=== PATIENT | female | born 1995 | race Caucasian/White ===

== ENCOUNTER 2024-01-15 12:47 | Outpatient (AMB) | payer OTHER, SELFPAY ==
--- NOTE | 2024-01-15 12:51 | A.OFFPC_ITS ---
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 Annual Phsyical Allergies chlorhexidine Allergy (Severe, Verified 01/15/24 12:53) Anaphylaxis Medication List - Last Reconciled 01/15/24 by Onesimo Saenz MD alprazolam (Xanax) 0.25 mg PO BEDTIME PRN vilazodone (Viibryd) 10 mg PO DAILY Tobacco use date assessed: 01/15/24 Dental Screening Dental Screen Date: 01/15/24 Did you have a dental visit in the last 12 months?: Yes Did you have a dental problem in the last 6 months where you did not have access to dental care?: No Was dental information given to patient?: Patient has dentist HPI 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 Funez as her psychiatrist who is retiring Patient is currently taking vilazodone 10 mg, I am increasing it to 20 mg Meanwhile I have created a referral for patient to be evaluated at [facility] She is also pushing possibility of ADHD I have ordered labs, that needs to be done fasting She has a family history of hypothyroidism Patient says that she feels she is allergic to mold Recently she has moved and there is mold in the vicinity Which is triggering headaches allergy legs syndrome and at time asthma feeling Patient have never been tested for mold allergy, referral to immunology allergy placed further evaluation Patient is slightly overweight as well She has OBGYN located in [facility] Last visit less than a year ago as per patient Breast exam through OBGYN Follow-up appointment after the lab reports [facility] Social History Housing: House Patient Tobacco Use Status: Current everyday Tobacco user Cigarettes Per Day: 2 e-Cigarette/Vaping Use: Never Used Current occupational status: employed Cognitive needs: No Hearing needs: No Vision needs: No Questionnaire PHQ-9 Over the last 2 weeks, how often have you been bothered by any of the following problems? 1. Little interest or pleasure in doing things: several days 2. Feeling down, depressed, or hopeless: nearly every day 3. Trouble falling or staying asleep, or sleeping too much: more than half the days 4. Feeling tired or having little energy: nearly every day 5. Poor appetite or overeating: not at all 6. Feeling bad about yourself - or that you are a failure or have let yourself or your family down: more than half the days 7. Trouble concentrating on things, such as reading the newspaper or watching television: nearly every day 8. Moving or speaking so slowly that other people could have noticed. Or the opposite - being so fidgety or restless that you have been moving around a lot more than usual: several days 9. Thoughts that you would be better off or of hurting yourself in some way: several days Total score: 16 Depression Screening Interpretation: Positive Depression Screening Follow-up: Existing condition, In treatment and Change in Medication Depression Screening Done: Yes 46539 - PHQ-9 Billing: Yes Source: Developed by Drs. Randall Wright, Theresa Ponce, Rikki Alvarez and colleagues, with an educational quang from [employer]. Thrive Questionnaire Date Thrive assessed: 01/15/24 I am a: Patient What is your living situation today?: I have a place to live, but I am worried about losing it in the future Within the past 12 months, did the food you bought not last and you didn't have the money to get more?: Often true Within the past 12 months, did you worry whether your food would run out before you got money to buy more?: Often true Do you have trouble paying for medicines?: No Do you have trouble getting transportation to medical appointments?: No Do you have trouble paying your heating and electricity bill?: No Do you have trouble taking care of your child, family member or friend?: No Do you have trouble with day-to-day activities such as bathing, preparing meals, shopping, managing finances, etc.?: No Are you currently unemployed and looking for a job?: I choose not to answer this question Are you interested in more education?: No Please select the resources that you would like help with: Housing/Senior Care Currently or been in a relationship where the following occur: No concerns reported THRIVE Score: 3 AUDIT C Alcohol Use Questionnaire (AUDIT-C) 1. How often do you have a drink containing alcohol?: 2-3 times a week 2. How many drinks containing alcohol do you have on a typical day when you are drinking?: 1 or 2 3. How often do you have six or more drinks on one occasion?: Less than monthly Total Score: 4 Score Reviewed/Action Taken: Yes PATRICIA-7 AMB Questionnaire PATRICIA-7 Date PATRICIA - 7 assessed: 01/15/24 Feeling nervous, anxious, or on edge: 3 = Nearly every day Not being able to stop or control worryin = Nearly every day Worrying too much about different things: 3 = Nearly every day Trouble relaxin = Nearly every day Being so restless that it is hard to sit still: 3 = Nearly every day Becoming easily annoyed or irritable: 3 = Nearly every day Feeling afraid as if something awful might happen: 2 = More than half the days Total PATRICIA-7 score (0-4 normal; 5-9 mild; 10-14 moderate; 15-21 severe): 20 Source: Developed by Drs. Randall Wright, Theresa Ponce, Rikki Alvarez and colleagues, with an educational quang from [employer]. PATRICIA-7 Assessment Billing PATRICIA-7 Assessment Tool: PATRICIA-7 Assessment 87142 Review of Systems Const Denies chills, Denies fever(s) and Denies headache(s) Eyes Denies blurry vision ENT Denies headache(s), Denies nasal discharge, Denies nasal obstruction, Denies odynophagia and Denies sinus pain Card Denies chest pain at rest and Denies chest pain with activity Resp Denies cough and Denies hemoptysis GI Denies diarrhea, Denies odynophagia, Denies vomiting and Denies hematemesis Reports as per HPI Musc Denies abnormal gait Skin/Breast Reports as per HPI Neuro Denies Neuro-related abnormal movements, Denies Abnormal speech present, Denies abnormal gait, Denies headache(s) and Denies Sensory deficit (Neuro) Psych Denies mood swings and Denies paranoia Endo Reports as per HPI Rene/Lymph Reports as per HPI Aller/Immun Reports as per HPI Physical exam (Primary Care) Vital Signs: Last Vital Signs Pulse 62 01/15/24 12:52 BP 122/80 07/31/24 12:52 Pulse Ox 98 01/15/24 12:52 Oxygen Delivery Method Room Air 01/15/24 12:52 BMI result Body Mass Index 27.7 Tobacco/Smoking Status: Tobacco use Status Tobacco use date assessed 01/15/24 01/15/24 12:57 Patient Tobacco Use Status Current everyday Tobacco 01/15/24 12:57 e-Cigarette/Vaping Use Never Used 01/15/24 13:11 PHQ-9: PHQ-9 Score PHQ-9: Total score 16 01/15/24 13:26 Depression Screening Interpretation: Positive Depression Screening Follow-up: Existing condition, In treatment and Change in Medication Thrive Assessment: Date of Thrive Assessment Date Thrive assessed 01/15/24 01/15/24 13:09 Currently or been in a relationship where the following occur: No concerns reported Const General: cooperative, comfortable and no acute distress Orientation/consciousness: patient oriented x3 HENMT Head: Yes normocephalic and Yes atraumatic Eyes General: appearance normal, both eyes and all related structures Pupils: Equal, round and reactive pupils present EOM: EOMs intact bilaterally Neck Neck: Yes supple and No lymphadenopathy Thyroid: Thyroid normal Lymphatic: no lymphadenopathy noted Resp Effort & Inspection: normal respiratory effort and able to speak in complete sentences Auscultation: clear to auscultation bilaterally Cardio Heart sounds: S1 normal heart sound present and S2 normal heart sound present GI Palpation (GI): Soft to palpation and nontender Auscultation: normal bowel sounds General: Yes no CVA tenderness Back/Spine/Pelvis Back: no CVA tenderness Skin General skin exam: elasticity normal and turgor normal Neuro General: patient oriented x3 and gait normal Cranial nerves: Yes Equal, round and reactive pupils present Speech: No Abnormal speech present Sensory Exam: No Sensory deficit (Neuro) Coordination: tandem gait normal and Romberg test negative Extrem General: Yes normal exam except as noted and No edema Assessment and Plan Assessment & Plan (1) Encounter for general adult medical examination with abnormal findings: Code(s): Z00.01 - Encounter for general adult medical examination with abnormal findings (2) Family history of hypothyroidism: Code(s): Z83.49 - Family history of other endocrine, nutritional and metabolic diseases (3) Disturbed concentration: Code(s): R41.840 - Attention and concentration deficit (4) Panic anxiety syndrome: Code(s): F41.0 - Panic disorder [episodic paroxysmal anxiety] (5) Major depression, recurrent: Code(s): F33.9 - Major depressive disorder, recurrent, unspecified Qualifiers: Active/Remission status: in partial remission Qualified Code(s): F33.41 - Major depressive disorder, recurrent, in partial remission (6) 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 Funez as her psychiatrist who is retiring Patient is currently taking vilazodone 10 mg, I am increasing it to 20 mg Meanwhile I have created a referral for [facility] She is also pushing possibility of ADHD I have ordered labs, that needs to be done fasting She has a family history of hypothyroidism Patient says that she feels she is allergic to mold Recently she has moved and there is mold in the vicinity Which is triggering headaches allergy legs syndrome and at time asthma feeling Patient have never been tested for mold allergy, referral to immunology allergy placed further evaluation Patient is slightly overweight as well She has OBGYN located in [facility] Last visit less than a year ago as per patient Breast exam through OBGYN Follow-up appointment after the lab reports Orders: Orders Comprehensive [place]. Panel Fast Today F33.9 - Major depressive disorder, recurrent, unspecified, F41.0 - Panic disorder [episodic paroxysmal anxiety], R41.840 - Attention and concentration deficit, Z00.01 - Encounter for general adult medical examination with abnormal findings, Z83.49 - Family history of other endocrine, nutritional and metabolic diseases, Z91.048 - Other nonmedicinal substance allergy status Vitamin B12 Today F33.9 - Major depressive disorder, recurrent, unspecified, F41.0 - Panic disorder [episodic paroxysmal anxiety], R41.840 - Attention and concentration deficit, Z00.01 - Encounter for general adult medical examination with abnormal findings, Z83.49 - Family history of other endocrine, nutritional and metabolic diseases, Z91.048 - Other nonmedicinal substance allergy status TSH reflex Free T4 Today F33.9 - Major depressive disorder, recurrent, unspecified, F41.0 - Panic disorder [episodic paroxysmal anxiety], R41.840 - Attention and concentration deficit, Z00.01 - Encounter for general adult medical examination with abnormal findings, Z83.49 - Family history of other endocrine, nutritional and metabolic diseases, Z91.048 - Other nonmedicinal substance allergy status Complete Blood Count Auto Diff Today F33.9 - Major depressive disorder, recurrent, unspecified, F41.0 - Panic disorder [episodic paroxysmal anxiety], R41.840 - Attention and concentration deficit, Z00.01 - Encounter for general adult medical examination with abnormal findings, Z83.49 - Family history of other endocrine, nutritional and metabolic diseases, Z91.048 - Other nonmedicinal substance allergy status Lipid Panel Today F33.9 - Major depressive disorder, recurrent, unspecified, F41.0 - Panic disorder [episodic paroxysmal anxiety], R41.840 - Attention and concentration deficit, Z00.01 - Encounter for general adult medical examination with abnormal findings, Z83.49 - Family history of other endocrine, nutritional and metabolic diseases, Z91.048 - Other nonmedicinal substance allergy status Vitamin D 25-OH (D2 and D3) Today F33.9 - Major depressive disorder, recurrent, unspecified, F41.0 - Panic disorder [episodic paroxysmal anxiety], R41.840 - Attention and concentration deficit, Z00.01 - Encounter for general adult medical examination with abnormal findings, Z83.49 - Family history of other endocrine, nutritional and metabolic diseases, Z91.048 - Other nonmedicinal substance allergy status Magnesium Today F33.9 - Major depressive disorder, recurrent, unspecified, F41.0 - Panic disorder [episodic paroxysmal anxiety], R41.840 - Attention and concentration deficit, Z00.01 - Encounter for general adult medical examination with abnormal findings, Z83.49 - Family history of other endocrine, nutritional and metabolic diseases, Z91.048 - Other nonmedicinal substance allergy status Referrals Allergy & Immunology Referral Z91.048 - Other nonmedicinal substance allergy status Psychiatry Referral F33.9 - Major depressive disorder, recurrent, unspecified, F41.0 - Panic disorder [episodic paroxysmal anxiety], R41.840 - Attention and concentration deficit Medications: New vilazodone (Viibryd) must administer with a meal/food 20 mg PO DAILY 90 tabs 0RF Coding Level of Care Code New Pt Level 4 (92842) New Pt Prev Care 18-39yr(74423 Diagnoses Encounter for general adult medical examination with abnormal findings Z00.01 Family history of hypothyroidism Z83.49 Disturbed concentration R41.840 Panic anxiety syndrome F41.0 Recurrent major depressive disorder, in partial remission F33.41 Active/Remission status: in partial remission Allergy to mold Z91.048 Additional Codes PATRICIA-7 Assessment Billing - PATRICIA-7 Assessment Tool: PATRICIA-7 Assessment 00772 ([id number])
[2024-01-15 12:52] VITALS: BP 122/80; PULSE 62; O2SAT 98; BMI 27.7
== END 2024-01-15 13:22 | disposition home or self-care (01) ==
PROVIDERS: Visit Provider Internal Medicine
DX: Z00.01 Encounter for general adult medical examination with abnormal findings (principal); F33.41 Major depressive disorder, recurrent, in partial remission; Z83.49 Family history of other endocrine, nutritional and metabolic diseases; R41.840 Attention and concentration deficit; F41.0 Panic disorder [episodic paroxysmal anxiety]; Z91.048 Other nonmedicinal substance allergy status
CPT/HCPCS: 96127; 99204; 99385

== ENCOUNTER 2024-02-05 12:01 | Outpatient (REF) | payer OTHER, SELFPAY ==
[2024-02-05 13:17] LABS: MANUAL DIFF FLAG NO
[2024-02-05 13:29] LABS: Basophils Percent Auto 0.5 % (0-2); Eosinophils Absolute Auto 0.2 X10*3/uL (0.0-0.4); Eosinophils Percent Auto 2.6 % (0-4); Hematocrit 38.8 % (37.0-47.0); Imm Gran Abs Auto 0.02 X10*3/uL (0.00-0.03); Imm Gran Pct Auto 0.3 % (0.0-0.4); Lymphocytes Absolute Auto 1.7 X10*3/uL (1.2-4.9); Lymphocytes Percent Auto 28.9 % (20-40); Mean Corpuscular HGB Conc 33.5 g/dl (31.0-35.0); Mean Corpuscular Hemoglobin 31.8 pg (27.0-33.0); Mean Corpuscular Volume 94.9 fL (80.0-98.0); Mean Platelet Volume 9.7 fL (9.4-12.3); Monocytes Absolute Auto 0.5 X10*3/uL (0.1-1.2); Monocytes Percent Auto 8.4 % (2-11); Neutrophils Absolute Auto 3.5 x10*3/uL (2.0-8.3); Neutrophils Percent Auto 59.3 % (45-73); Platelet Count 206 X10*3/uL (160-400); Red Blood Count 4.09 X10*6/uL (4.20-5.50); Red Cell Distribution Width 11.8 % (11.0-16.0); White Blood Count 5.9 X10*3/uL (4.8-10.8)
[2024-02-05 14:05] LABS: Alanine Aminotransferase 13 U/L (0-31); Albumin Level 4.2 g/dL (3.5-5.0); Alkaline Phosphatase 68 U/L (39-117); Anion Gap 10 (12-20); Aspartate Amino Transferase 15 U/L (5-31); Bilirubin Total 0.3 mg/dL (0.0-1.0); Blood Urea Nitrogen 11 mg/dL (9-16); Calcium 9.5 mg/dL (8.4-10.2); Carbon Dioxide 28 mmol/L (22-29); Chloride 105 mmol/L (96-108); Cholesterol 201 mg/dL (<200); Estimated Glomerular Filt Rate > 60; Glucose Fasting 85 mg/dL (60-99); HDL Cholesterol 53 mg/dL (>40); LDL Cholesterol Calculated 131 mg/dL (<100); Sodium 139 mmol/L (135-145); Total Protein 7.4 g/dL (6.5-8.0); Triglycerides 86 mg/dL (<150)
[2024-02-05 14:21] LABS: TSH reflex Free T4 1.49 uIU/mL (0.32-4.0)
[2024-02-05 18:58] LABS: Vitamin B12 370 pg/mL (200-900)
[2024-02-11 14:13] LABS: Vitamin D 25-OH, D2 <4 ng/mL; Vitamin D 25-OH, D3 18 ng/mL; Vitamin D 25-OH, Total 18 ng/mL (30-100)
== END 2024-02-05 12:02 | disposition home or self-care (01) ==
LOC: HO.HMGCLDS 12:01
PROVIDERS: PCP Internal Medicine; Visit Provider Internal Medicine
DX: Z00.01 Encounter for general adult medical examination with abnormal findings (principal); R41.840 Attention and concentration deficit; F41.0 Panic disorder [episodic paroxysmal anxiety]; F33.9 Major depressive disorder, recurrent, unspecified; Z91.048 Other nonmedicinal substance allergy status; Z83.49 Family history of other endocrine, nutritional and metabolic diseases
CPT/HCPCS: 36415; 80053; 80061; 82306; 82607; 83735; 84443; 85025

== ENCOUNTER 2024-02-06 12:00 | Outpatient (AMB) | payer OTHER, SELFPAY ==
--- NOTE | 2024-02-06 14:30 | A.OFFPSYCH_ITS ---
Intake Intake Visit Reasons: consult Hose Inspector Required: Yes Allergies chlorhexidine Allergy (Severe, Verified 01/15/24 12:53) Anaphylaxis Medication List - Last Reconciled 02/06/24 by Kristi Garcia APRN alprazolam (Xanax) 0.25 mg PO BEDTIME PRN vilazodone (Viibryd) 20 mg PO DAILY HPI- Psychiatric Chief Complaint: consult HPI Narrative: 28 yr old woman referred by PCP for evaluation of depression, anxiety and possible ADHD. Pt reports long hx of depression and anxiety even as a child. She started therapy age 16. She has had many bouts of seasonal depression; after several med trials she finally feels viibryd 20 mg daily has helped her depression. She continues to have difficulty functioning and trouble specifically performing in her job consistently; she has been fired numerous times or left jobs before being fired. 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 She describes panic attacks that include SOB, rapid heart beat and feelings of dread; these have decrease with the viibryd. she also describes another type of panic or anxiety attack: when she feels she can not do something she will worry about it for hours, ruminate and slowly get more upset; she has negative thoughts about herself, recalls all the times she has failed, and feels the lights are too bright and sounds are too loud. she feels embarrassment and shame and start talking too fast, pacing, feels like she'll have a temper tantrum, cries, makes noises, scratches self, and pulls at her hair; she has used DBT strategies with some success to mange these. she often can not get out of her car if at a job site, and fleeing is the only actions that dissipates these episodes; she feels very discouraged and hard on herself because it interferes with her life goals,. 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 she feels distracted all the time primarily with her inner world. 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 Past Psychiatric History: outpt since age 16. no IPLOC; past trial of wellbutrin, lexapro, lamictal and zoloft all ineffective and possibly caused worsening. she ahas been to ED 1 x for panic attacks. Subjective Subjective Subjective Medication Compliance: Yes Side effects from medications: No Review of Systems Medical Review of Systems: unchanged Mental Status Exam Mental Status Exam Patient Appearance: Well Grooomed and Appropriate Patient Orientation: Person, Place, Time and Situation Level of Consciousness: Awake, Appropriate and Alert Patient Behavior: Appropriate, Restless and Distractible Mood Description: Withdrawn, Constricted, Flat and Sad Affect Description: Withdrawn Patient Cognition Impaired: No Ability to Follow Directions: Good Speech Pattern: Difficulty Finding Words Memory Description: Episodic Impaired Hallucinations: None Delusions: Not Present Thought Process: Distracted and Rumination Thought Content: positive for Intact and positive for Goal Oriented Judgement: Fair Assessment and Plan Assessment & Plan (1) Major depression, recurrent: Status: Acute Qualifiers: Active/Remission status: in partial remission Qualified Code(s): F33.41 - Major depressive disorder, recurrent, in partial remission Code(s): F33.9 - Major depressive disorder, recurrent, unspecified (2) Panic anxiety syndrome: Status: Acute Code(s): F41.0 - Panic disorder [episodic paroxysmal anxiety] (3) Disturbed concentration: Status: Acute Code(s): R41.840 - Attention and concentration deficit Plan rule out ADHD rule out OCD continue viibryd 20 mg daily continue xanax 0.25mg prn trial of adderall XR 20mg qam retunr in 2-3 weeks Medications: New dextroamphetamine-amphetamine 20 mg ER (Adderall XR) Partial Fill upon patient request. 20 mg PO QAM 30 caps 0RF Counseling and coordination of Care Pt. Self Management counseling: Maintenance-social rhythm, Mod caffeine/ETOH intake, Nutrition education and improvement, Sleep hygiene and General coping skills Medication management counseling: Effectiveness, Side effects, Dosing range, Duration, Drug interaction and Adherence Diagnosis and Prognosis Counseling: Accuracy of diagnosis, Prognosis over time, Impact of diagnosis on life functions, Impact of family relationship, Problematic behaviors secondary to diagnosis and Adequacy of current interventions Details: I spent 70 minutes reviewing the record, seeing the patient and documenting in the medical record. Counseling provided to the patient/caregiver as outlined below. Addressed patien t/caregiver concerns regarding current medication regime including effective adherence. Addressed patient/caregiver concerns regarding diagnosis and prognosis including accuracy of diagnosis, prognosis over time, impact of diagnosis. Addressed patient/caregiver concerns regarding impact of recent stressors. 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 she grew up in [place]. lived with both parents and has 2 younger brothers. she did ok in school; no IEP; gravitated to artistic classes; stated playing in bands age [age]. grad HS and Associates from [employer]. Substance History: tobacco 1-2 cigarettes per day, etoh 2-3 times a week and 1-2 drinks per day, THC in 20s not now Trauma History: none Coding Level of Care Code Psych Diag Eval w/Med (42774) Diagnoses Recurrent major depressive disorder, in partial remission F33.41 Active/Remission status: in partial remission Panic anxiety syndrome F41.0 Disturbed concentration R41.840
== END 2024-02-06 13:24 | disposition home or self-care (01) ==
LOC: HO.HOP 12:00
PROVIDERS: PCP Internal Medicine; Visit Provider Clinical Nurse Specialist Psychiatric/Mental Health
DX: F33.41 Major depressive disorder, recurrent, in partial remission (principal); F41.0 Panic disorder [episodic paroxysmal anxiety]; R41.840 Attention and concentration deficit
CPT/HCPCS: 90792

== ENCOUNTER → 2024-02-06 12:00 | Outpatient (BNVA) | payer OTHER, SELFPAY | PROVIDERS: PCP Internal Medicine; Visit Provider Clinical Nurse Specialist Psychiatric/Mental Health | DX: F33.41 Major depressive disorder, recurrent, in partial remission (principal); F41.9 Anxiety disorder, unspecified; F41.0 Panic disorder [episodic paroxysmal anxiety]; R41.840 Attention and concentration deficit | CPT/HCPCS: 90792 ==

== ENCOUNTER 2024-02-25 13:29 | Outpatient (AMB) | payer OTHER, SELFPAY ==
[2024-02-25 13:34] VITALS: BP 124/76; PULSE 92; O2SAT 99; BMI 27.4
--- NOTE | 2024-02-25 13:34 | A.OFFPC_ITS ---
Vital Signs 02/25/24 13:34 Height 5 ft 7 in Weight 175 lb 2 oz BMI 27.4 BP 124/76 Blood Pressure Location Rt brachial Position Sitting Pulse 92 Pulse Source Pulse Oximeter Pulse Oximetry (%) 99 Oxygen Delivery Method Room Air Intake Visit Reasons: Medication increase - Med review Allergies chlorhexidine Allergy (Severe, Verified 02/25/24 13:34) Anaphylaxis Medication List - Last Reconciled 02/25/24 by Onesimo Saenz MD alprazolam (Xanax) 0.25 mg PO BEDTIME PRN dextroamphetamine-amphetamine 10 mg ER (Adderall XR) 10 mg PO QAM vilazodone (Viibryd) 20 mg PO DAILY Tobacco use date assessed: 02/25/24 Dental Screening Dental Screen Date: 02/25/24 Did you have a dental visit in the last 12 months?: Yes Did you have a dental problem in the last 6 months where you did not have access to dental care?: No Was dental information given to patient?: Patient has dentist HPI Medication increase - Med review HPI Details Patient is 28-year-old female came in today to go over lab reports Patient was concerned that she is allergic to mold However she has moved out since Lab report does not show elevated eosinophils Kidney functions are intact liver functions are intact TSH is within normal limit Vitamin-D level is low for that I have sent supplement that she is to start 1 daily Patient is currently seeing psychiatric nurse for medication management And in a process of having medication adjusted for anxiety and ADHD Once the medications adjusted she will be transitioned over to or Patient is aware that with Adderall and Xanax she will need to come in every other month for follow-up due to controlled nature of medication She agrees. [facility] Social History Housing: House Patient Tobacco Use Status: Current everyday Tobacco user Cigarettes Per Day: 2 e-Cigarette/Vaping Use: Never Used service: No Current occupational status: employed Cognitive needs: No Hearing needs: No Vision needs: No Questionnaire PHQ-9 Over the last 2 weeks, how often have you been bothered by any of the following problems? 1. Little interest or pleasure in doing things: several days 2. Feeling down, depressed, or hopeless: nearly every day 3. Trouble falling or staying asleep, or sleeping too much: more than half the days 4. Feeling tired or having little energy: nearly every day 5. Poor appetite or overeating: not at all 6. Feeling bad about yourself - or that you are a failure or have let yourself or your family down: more than half the days 7. Trouble concentrating on things, such as reading the newspaper or watching television: nearly every day 8. Moving or speaking so slowly that other people could have noticed. Or the opposite - being so fidgety or restless that you have been moving around a lot more than usual: several days 9. Thoughts that you would be better off or of hurting yourself in some way: several days Total score: 16 Depression Screening Interpretation: Positive Depression Screening Follow-up: Existing condition and In treatment Depression Screening Done: Yes 97722 - PHQ-9 Billing: Yes Source: Developed by Drs. Randall Wright, Theresa Ponce, Rikki Alvarez and colleagues, with an educational quang from [employer]. Thrive Questionnaire Date Thrive assessed: 02/25/24 I am a: Patient What is your living situation today?: I have a place to live, but I am worried about losing it in the future Within the past 12 months, did the food you bought not last and you didn't have the money to get more?: Often true Within the past 12 months, did you worry whether your food would run out before you got money to buy more?: Often true Do you have trouble paying for medicines?: No Do you have trouble getting transportation to medical appointments?: No Do you have trouble paying your heating and electricity bill?: No Do you have trouble taking care of your child, family member or friend?: No Do you have trouble with day-to-day activities such as bathing, preparing meals, shopping, managing finances, etc.?: No Are you currently unemployed and looking for a job?: I choose not to answer this question Are you interested in more education?: No Please select the resources that you would like help with: None Currently or been in a relationship where the following occur: No concerns reported THRIVE Score: 3 AUDIT C Alcohol Use Questionnaire (AUDIT-C) 1. How often do you have a drink containing alcohol?: 2-3 times a week 2. How many drinks containing alcohol do you have on a typical day when you are drinking?: 1 or 2 3. How often do you have six or more drinks on one occasion?: Less than monthly Total Score: 4 Score Reviewed/Action Taken: Yes PATRICIA-7 AMB Questionnaire PATRICIA-7 Date PATRICIA - 7 assessed: 02/25/24 Feeling nervous, anxious, or on edge: 3 = Nearly every day Not being able to stop or control worryin = Nearly every day Worrying too much about different things: 3 = Nearly every day Trouble relaxin = Nearly every day Being so restless that it is hard to sit still: 3 = Nearly every day Becoming easily annoyed or irritable: 3 = Nearly every day Feeling afraid as if something awful might happen: 2 = More than half the days Total PATRICIA-7 score (0-4 normal; 5-9 mild; 10-14 moderate; 15-21 severe): 20 Source: Developed by Drs. Randall Wright, Theresa Ponce, Rikki Alvarez and colleagues, with an educational quang from [employer]. PATRICIA-7 Assessment Billing PATRICIA-7 Assessment Tool: PATRICIA-7 Assessment 65520 Review of Systems Const Denies chills and Denies fever(s) ENT Denies epistaxis and Denies nasal discharge Card Denies chest pain Resp Denies chest congestion, Denies cough and Denies hemoptysis GI Denies diarrhea and Denies nausea Skin/Breast Denies rash Neuro Reports no additional complaints Psych Reports no additional complaints Endo Reports no additional complaints Physical exam (Primary Care) Vital Signs: Last Vital Signs Pulse 92 02/25/24 13:34 BP 124/76 02/25/24 13:34 Pulse Ox 99 02/25/24 13:34 Oxygen Delivery Method Room Air 02/25/24 13:34 BMI result Body Mass Index 27.4 Tobacco/Smoking Status: Tobacco use Status Tobacco use date assessed 02/25/24 02/25/24 13:36 Patient Tobacco Use Status Current everyday Tobacco 02/25/24 13:36 e-Cigarette/Vaping Use Never Used 02/25/24 13:36 PHQ-9: PHQ-9 Score PHQ-9: Total score 16 02/25/24 13:40 Depression Screening Interpretation: Positive Depression Screening Follow-up: Existing condition and In treatment Thrive Assessment: Date of Thrive Assessment Date Thrive assessed 02/25/24 02/25/24 13:40 Currently or been in a relationship where the following occur: No concerns reported Const General: cooperative, comfortable and no acute distress Orientation/consciousness: patient oriented x3 HENMT Head: Yes normocephalic Eyes General: appearance normal, both eyes and all related structures Neck Neck: Yes supple Resp Effort & Inspection: normal respiratory effort, no cough and no stridor Cardio Rhythm: regular rhythm Heart sounds: S1 normal heart sound present and S2 normal heart sound present Skin General skin exam: turgor normal Neuro General: patient oriented x3, tone normal and moves all extremities Extrem Right lower extremity: no edema Left lower extremity: no edema Assessment and Plan Assessment & Plan (1) Major depression, recurrent: Code(s): F33.9 - Major depressive disorder, recurrent, unspecified Qualifiers: Active/Remission status: in partial remission Qualified Code(s): F33.41 - Major depressive disorder, recurrent, in partial remission (2) Panic anxiety syndrome: Code(s): F41.0 - Panic disorder [episodic paroxysmal anxiety] (3) Disturbed concentration: Code(s): R41.840 - Attention and concentration deficit (4) Vitamin D deficiency: Code(s): E55.9 - Vitamin D deficiency, unspecified Plan Patient is 28-year-old female came in today to go over lab reports Patient was concerned that she is allergic to mold However she has moved out since Lab report does not show elevated eosinophils Kidney functions are intact liver functions are intact TSH is within normal limit Vitamin-D level is low for that I have sent supplement that she is to start 1 daily Patient is currently seeing psychiatric nurse for medication management And in a process of having medication adjusted for anxiety and ADHD Once the medications adjusted she will be transitioned over to or Patient is aware that with Adderall and Xanax she will need to come in every other month for follow-up due to controlled nature of medication She agrees. Medications: New cholecalciferol (vitamin D3) 25 mcg PO DAILY 90 days 90 caps 1RF dicyclomine 10 mg PO TID 60 caps 1RF Abdominal cramping Coding Level of Care Code Est Pt Level 3 (77555) Complex EM visit Add On G2211 Diagnoses Recurrent major depressive disorder, in partial remission F33.41 Active/Remission status: in partial remission Panic anxiety syndrome F41.0 Disturbed concentration R41.840 Vitamin D deficiency E55.9 Additional Codes PATRICIA-7 Assessment Billing - PATRICIA-7 Assessment Tool: PATRICIA-7 Assessment 28042 ([id number])
== END 2024-02-25 13:56 | disposition home or self-care (01) ==
PROVIDERS: Visit Provider Internal Medicine
DX: F33.41 Major depressive disorder, recurrent, in partial remission (principal); F41.0 Panic disorder [episodic paroxysmal anxiety]; R41.840 Attention and concentration deficit; E55.9 Vitamin D deficiency, unspecified
CPT/HCPCS: 96127; 99213; G2211

== ENCOUNTER 2024-03-03 16:36 | Outpatient (AMB) | payer OTHER, SELFPAY ==
--- NOTE | 2024-03-03 16:39 | MHC.OFFVISPS ---
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 Allergies chlorhexidine Allergy (Severe, Verified 02/25/24 13:34) Anaphylaxis Medication List - Last Reconciled 03/03/24 by Kristi Garcia APRN alprazolam (Xanax) 0.25 mg PO BEDTIME PRN cholecalciferol (vitamin D3) 25 mcg PO DAILY 90 days dextroamphetamine-amphetamine 10 mg ER (Adderall XR) 10 mg PO QAM dicyclomine 10 mg PO TID vilazodone (Viibryd) 20 mg PO DAILY HPI- Psychiatric Chief Complaint: follow up HPI Narrative: pt reports adderall xr 20 mg caused some side effects including blurry vision; she reduced it to 10mg and blurry vision remitted; she is not sure if it has helped; she reports no depression but continues to have anxiety; GAD7 = 15. discussed long hx since childhood of anxiety, sensitivity to noise and light, external stimulation; emotional reactivity to seemingly innocuous things like cartoons. Past Psychiatric History: outpt since age 16. no IPLOC; past trial of wellbutrin, lexapro, lamictal and zoloft all ineffective and possibly caused worsening. she ahas been to ED 1 x for panic attacks. Subjective Subjective Subjective Medication Compliance: Yes Side effects from medications: Yes (blurry vision) Review of Systems Medical Review of Systems: unchanged Mental Status Exam Mental Status Exam Patient Appearance: Appropriate Patient Orientation: Person, Place, Time and Situation Level of Consciousness: Awake and Appropriate Patient Behavior: Appropriate and Cooperative Mood Description: Calm and Flat Affect Description: Calm Patient Cognition Impaired: No Ability to Follow Directions: Good Speech Pattern: Clear and Appropriate Memory Description: Intact Hallucinations: None Delusions: Not Present Thought Process: Intact and Goal Oriented Thought Content: positive for Intact and positive for Goal Oriented Judgement: Fair Assessment and Plan Assessment & Plan (1) Disturbed concentration: Status: Acute Code(s): R41.840 - Attention and concentration deficit (2) Generalized anxiety disorder with panic attacks: Status: Acute Code(s): F41.1 - Generalized anxiety disorder; F41.0 - Panic disorder [episodic paroxysmal anxiety] Plan rule out ADHD rule out sensory processing difficulty plan: increase vilazedone to 30mg daily reduce adderall to 5mg take 1/2 to 1 tab BID to TID recommend eye exam to check intraocular pressure given blurr vision with adderall 20 mg and vilazedone 20mg daily-may indicate pre-exisiting condition Medications: New dextroamphetamine-amphetamine 5 mg (Adderall) take 1/2 to 1 tablet BID administer doses at least 4-6 hours apart; Partial Fill upon patient request. 5 mg PO BID 60 tabs 0RF vilazodone must administer with a meal/food 10 mg PO DAILY 30 tabs 1RF Refilled vilazodone (Viibryd) must administer with a meal/food 20 mg PO DAILY 90 tabs 0RF Discontinued dextroamphetamine-amphetamine 10 mg ER (Adderall XR) Partial Fill upon patient request. Discontinued Reason: Doctor's Order 10 mg PO QAM 14 caps 0RF Counseling and coordination of Care Pt. Self Management counseling: Maintenance-social rhythm, Mod caffeine/ETOH intake, Sleep hygiene, Behavior activation and Problem solving Medication management counseling: Effectiveness, Side effects, Dosing range, Duration, Drug interaction and Adherence Diagnosis and Prognosis Counseling: Accuracy of diagnosis, Prognosis over time, Impact of diagnosis on life functions and Adequacy of current interventions Details: I spent 45 minutes reviewing the record, seeing the patient and documenting in the medical record. Counseling provided to the patient/caregiver as outlined below. Addressed patient/caregiver concerns regarding current medication regime including effective adherence. Addressed patient/caregiver concerns regarding diagnosis and prognosis including accuracy of diagnosis, prognosis over time, impact of diagnosis. Addressed patient/caregiver concerns regarding impact of recent stressors. 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 she grew up in [place]. lived with both parents and has 2 younger brothers. she did ok in school; no IEP; gravitated to artistic classes; stated playing in bands age [age]. grad HS and Associates from [employer]. Substance History: tobacco 1-2 cigarettes per day, etoh 2-3 times a week and 1-2 drinks per day, THC in 20s not now Trauma History: none Coding Level of Care Code Est Pt Level 5 (45948) Diagnoses Disturbed concentration R41.840 Generalized anxiety disorder with panic attacks F41.1; F41.0
== END 2024-03-03 17:11 | disposition home or self-care (01) ==
LOC: HO.HOP 16:36
PROVIDERS: PCP Internal Medicine; Visit Provider Clinical Nurse Specialist Psychiatric/Mental Health
DX: F33.41 Major depressive disorder, recurrent, in partial remission (principal); F41.1 Generalized anxiety disorder; F41.0 Panic disorder [episodic paroxysmal anxiety]; R41.840 Attention and concentration deficit
CPT/HCPCS: 99215

== ENCOUNTER → 2024-03-03 16:36 | Outpatient (BNVA) | payer OTHER, SELFPAY | PROVIDERS: PCP Internal Medicine; Visit Provider Clinical Nurse Specialist Psychiatric/Mental Health | DX: F41.1 Generalized anxiety disorder; F41.0 Panic disorder [episodic paroxysmal anxiety]; Z71.89 Other specified counseling; R41.840 Attention and concentration deficit | CPT/HCPCS: 99212 ==

== ENCOUNTER 2024-03-12 09:27 | Outpatient (AMB) | payer OTHER, SELFPAY ==
--- NOTE | 2024-03-12 10:12 | A.OFFPSYCH_ITS ---
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: No Allergies chlorhexidine Allergy (Severe, Verified 02/25/24 13:34) Anaphylaxis Medication List - Last Reconciled 03/12/24 by Kristi Garcia APRN alprazolam (Xanax) 0.25 mg PO BEDTIME PRN cholecalciferol (vitamin D3) 25 mcg PO DAILY 90 days dicyclomine 10 mg PO TID vilazodone (Viibryd) 20 mg PO DAILY vilazodone 10 mg PO DAILY HPI- Psychiatric Chief Complaint: follow up HPI Narrative: pt seen on an urgent basis sooner than scheduled due to increase in symptoms; pt had more episodes of feeling overwhelmed, panicking, unable to get out of car at work site, once she did she continued to have panic attack which worsened and then she was on her knees crying and scratching at self, verbally apologizing and simultaneously criticizing and belittling self; pt feels discouraged and hopeless; she had passive SI during the panic attack; she feels embarrassed. Pt is using coping skills she has learned but its not enough to manage the panic attacks. pt wasn't able to start the increased viibryd due to insurance requiring PA.PA completed and viibryd approved. She will start today; she will stop the adderall as it has not helped. Past Psychiatric History: outpt since age 16. no IPLOC; past trial of wellbutrin, lexapro, lamictal and zoloft all ineffective and possibly caused worsening. she ahas been to ED 1 x for panic attacks. Subjective Subjective Subjective Medication Compliance: Yes Side effects from medications: No Review of Systems Medical Review of Systems: unchanged Mental Status Exam Mental Status Exam Patient Appearance: Well Grooomed and Appropriate Patient Orientation: Person, Place, Time and Situation Level of Consciousness: Awake, Appropriate and Alert Patient Behavior: Appropriate and Cooperative Mood Description: Anxious, Sad and Nervous Affect Description: Anxious and Sad Patient Cognition Impaired: No Ability to Follow Directions: Good Speech Pattern: Clear, Impoverished, Difficulty Finding Words and Long Pauses Memory Description: Intact Hallucinations: None Delusions: Not Present Thought Process: Distracted Thought Content: positive for Loose Associations, positive for Thought Blocking (? of ) and positive for Suicidal Ideation (passive ) Judgement: Fair Assessment and Plan Assessment & Plan (1) Generalized anxiety disorder with panic attacks: Status: Acute Code(s): F41.1 - Generalized anxiety disorder; F41.0 - Panic disorder [episodic paroxysmal anxiety] (2) Major depression, recurrent: Status: Acute Qualifiers: Active/Remission status: in partial remission Qualified Code(s): F33.41 - Major depressive disorder, recurrent, in partial remission Code(s): F33.9 - Major depressive disorder, recurrent, unspecified Plan rule ASD increase viibryd to 30mg daily continue xanax prn stop adderall letter for medical leave of absence for 8 weeks consider PHP Medications: New alprazolam (Xanax) 0.25 mg PO BEDTIME PRN 30 tabs 0RF panic Discontinued dextroamphetamine-amphetamine 5 mg (Adderall) take 1/2 to 1 tablet BID administer doses at least 4-6 hours apart; Partial Fill upon patient request. Discontinued Reason: Patient no longer taking 5 mg PO BID 60 tabs 0RF Counseling and coordination of Care Pt. Self Management counseling: Maintenance-social rhythm, Mod caffeine/ETOH intake, Sleep hygiene, General coping skills and Problem solving Medication management counseling: Effectiveness, Side effects, Dosing range, Duration, Drug interaction and Adherence Diagnosis and Prognosis Counseling: Accuracy of diagnosis, Prognosis over time, Impact of diagnosis on life functions, Impact of family relationship, Problematic behaviors secondary to diagnosis and Adequacy of current interventions Details: I spent 45 minutes reviewing the record, seeing the patient and documenting in the medical record. Counseling provided to the patient/caregiver as outlined below. Addressed patient/caregiver concerns regarding current medication regime including effective adherence. Addressed patient/caregiver concerns regarding diagnosis and prognosis including accuracy of diagnosis, prognosis over time, impact of diagnosis. Addressed patient/caregiver concerns regarding impact of recent stressors. 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 she grew up in [place]. lived with both parents and has 2 younger brothers. she did ok in school; no IEP; gravitated to artistic classes; stated playing in bands age [age]. grad HS and Associates from [employer]. Substance History: tobacco 1-2 cigarettes per day, etoh 2-3 times a week and 1-2 drinks per day, THC in 20s not now Trauma History: none Coding Level of Care Code Est Pt Level 5 (68953) Diagnoses Generalized anxiety disorder with panic attacks F41.1; F41.0 Recurrent major depressive disorder, in partial remission F33.41 Active/Remission status: in partial remission
== END 2024-03-12 10:09 | disposition home or self-care (01) ==
LOC: HO.HOP 09:27
PROVIDERS: PCP Internal Medicine; Visit Provider Clinical Nurse Specialist Psychiatric/Mental Health
DX: F41.1 Generalized anxiety disorder (principal); F41.0 Panic disorder [episodic paroxysmal anxiety]; F33.41 Major depressive disorder, recurrent, in partial remission
CPT/HCPCS: 99215

== ENCOUNTER → 2024-03-12 09:27 | Outpatient (BNVA) | payer OTHER, SELFPAY | PROVIDERS: PCP Internal Medicine; Visit Provider Clinical Nurse Specialist Psychiatric/Mental Health | DX: F41.1 Generalized anxiety disorder (principal); F41.0 Panic disorder [episodic paroxysmal anxiety]; F33.41 Major depressive disorder, recurrent, in partial remission; F33.9 Major depressive disorder, recurrent, unspecified; Z71.89 Other specified counseling | CPT/HCPCS: 99212 ==

== ENCOUNTER 2024-03-26 16:02 | Outpatient (AMB) | payer OTHER, SELFPAY ==
--- NOTE | 2024-03-26 16:07 | MHC.OFFVISPS ---
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 She had 1 successful morning of going to work for half a day but then had to leave due to feeling anxious. She is feeling more optimistic and less overwhelmed no side effects from the medication and will continue with the current plan Past Psychiatric History: outpt since age 16. no IPLOC; past trial of wellbutrin, lexapro, lamictal and zoloft all ineffective and possibly caused worsening. she ahas been to ED 1 x for panic attacks. Subjective Subjective Subjective Medication Compliance: Yes Side effects from medications: No Review of Systems Medical Review of Systems: unchanged Mental Status Exam Mental Status Exam Patient Appearance: Well Grooomed and Appropriate Patient Orientation: Person, Place, Time and Situation Level of Consciousness: Awake, Appropriate and Alert Patient Behavior: Appropriate Mood Description: Happy and Anxious Affect Description: Happy and Anxious Patient Cognition Impaired: No Ability to Follow Directions: Good Speech Pattern: Clear and Appropriate Memory Description: Intact Delusions: Not Present Thought Process: Intact and Goal Oriented Thought Content: positive for Intact Judgement: Good Assessment and Plan Assessment & Plan (1) Generalized anxiety disorder with panic attacks: Status: Acute Code(s): F41.1 - Generalized anxiety disorder; F41.0 - Panic disorder [episodic paroxysmal anxiety] (2) Vitamin D deficiency: Status: Acute Code(s): E55.9 - Vitamin D deficiency, unspecified (3) Major depression, recurrent: Status: Acute Qualifiers: Active/Remission status: in partial remission Qualified Code(s): F33.41 - Major depressive disorder, recurrent, in partial remission Code(s): F33.9 - Major depressive disorder, recurrent, unspecified Plan continue current medication. return in 6 weeks Medications: Refilled alprazolam (Xanax) 0.25 mg PO BEDTIME PRN 30 tabs 0RF panic vilazodone (Viibryd) must administer with a meal/food 20 mg PO DAILY 90 tabs 0RF vilazodone must administer with a meal/food 10 mg PO DAILY 90 tabs 1RF Counseling and coordination of Care Pt. Self Management counseling: Maintenance-social rhythm, Sleep hygiene, Behavior activation and General coping skills Medication management counseling: Effectiveness, Side effects, Dosing range, Duration, Drug interaction and Adherence Diagnosis and Prognosis Counseling: Accuracy of diagnosis, Prognosis over time, Impact of diagnosis on life functions and Adequacy of current interventions Details: I spent [] minutes reviewing the record, seeing the patient and documenting in the medical record. Counseling provided to the patient/caregiver as outlined below. Addressed patient/caregiver concerns regarding current medication regime including effective adherence. Addressed patient/caregiver concerns regarding diagnosis and prognosis including accuracy of diagnosis, prognosis over time, impact of diagnosis. Addressed patient/caregiver concerns regarding impact of recent stressors. 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 she grew up in [place]. lived with both parents and has 2 younger brothers. she did ok in school; no IEP; gravitated to artistic classes; stated playing in bands age [age]. grad HS and Associates from [employer]. Substance History: tobacco 1-2 cigarettes per day, etoh 2-3 times a week and 1-2 drinks per day, THC in 20s not now Trauma History: none Coding Level of Care Code Est Pt Level 4 (42756) Diagnoses Generalized anxiety disorder with panic attacks F41.1; F41.0 Vitamin D deficiency E55.9 Recurrent major depressive disorder, in partial remission F33.41 Active/Remission status: in partial remission
== END 2024-03-26 16:20 | disposition home or self-care (01) ==
LOC: HO.HOP 16:02
PROVIDERS: PCP Internal Medicine; Visit Provider Clinical Nurse Specialist Psychiatric/Mental Health
DX: F41.1 Generalized anxiety disorder (principal); F41.0 Panic disorder [episodic paroxysmal anxiety]; E55.9 Vitamin D deficiency, unspecified; F33.41 Major depressive disorder, recurrent, in partial remission
CPT/HCPCS: 99214

== ENCOUNTER → 2024-03-26 16:02 | Outpatient (BNVA) | payer OTHER, SELFPAY | PROVIDERS: PCP Internal Medicine; Visit Provider Clinical Nurse Specialist Psychiatric/Mental Health | DX: F41.1 Generalized anxiety disorder (principal); F41.0 Panic disorder [episodic paroxysmal anxiety]; F33.41 Major depressive disorder, recurrent, in partial remission; F33.9 Major depressive disorder, recurrent, unspecified; E55.9 Vitamin D deficiency, unspecified | CPT/HCPCS: 99212 ==

== ENCOUNTER 2024-05-07 16:05 | Outpatient (AMB) | payer OTHER, SELFPAY ==
--- NOTE | 2024-05-07 16:21 | MHC.OFFVISPS ---
Intake Intake Visit Reasons: follow up Public Health Social Worker Required: No Allergies chlorhexidine Allergy (Severe, Verified 02/25/24 13:34) Anaphylaxis Medication List - Last Reconciled 05/18/24 by Kristi Garcia APRN alprazolam (Xanax) 0.25 mg PO BEDTIME PRN cholecalciferol (vitamin D3) 25 mcg PO DAILY 90 days dicyclomine 10 mg PO TID vilazodone (Viibryd) 40 mg PO DAILY HPI- Psychiatric Chief Complaint: follow up HPI Narrative: pt had a panic attack while here in office. she was unable or unwilling to stay; she felt she needed to get out of the building; she tried to calm herslef but was unable to. before she left the office she stated that in general she has been doing a lot better abd functioning better; she said she had a long day at work. once she began t panic she kept saying she shoud have made the appointment earlier in the day so she wasn't so tired. she was able to contract fro safety and siad she would not drive until she calmed down. she said she had alprazolam in her car. she said she would take one and wait till she calmed down and she would call me when she calms down to let me know she is ok. she denied any thoughts of hurting self or others. Past Psychiatric History: outpt since age 16. no IPLOC; past trial of wellbutrin, lexapro, lamictal and zoloft all ineffective and possibly caused worsening. she ahas been to ED 1 x for panic attacks. Subjective Subjective Subjective Medication Compliance: Yes Side effects from medications: No Review of Systems Medical Review of Systems: unchanged Mental Status Exam Mental Status Exam Patient Appearance: Well Grooomed and Appropriate Patient Orientation: Person, Place, Time and Situation Level of Consciousness: Awake and Appropriate Patient Behavior: Anxious and Pacing Mood Description: Anxious Affect Description: Anxious Patient Cognition Impaired: No Ability to Follow Directions: Good Speech Pattern: Difficulty Finding Words Memory Description: Intact Hallucinations: None Delusions: Not Present Thought Process: Intact and Goal Oriented Thought Content: positive for Intact and positive for Goal Oriented Judgement: Fair Assessment and Plan Assessment & Plan (1) Generalized anxiety disorder with panic attacks: Status: Acute Code(s): F41.1 - Generalized anxiety disorder; F41.0 - Panic disorder [episodic paroxysmal anxiety] (2) Panic anxiety syndrome: Status: Acute Code(s): F41.0 - Panic disorder [episodic paroxysmal anxiety] Plan no changes t/c to patient to follow up asked her to reshcedule Counseling and coordination of Care Pt. Self Management counseling: General coping skills Medication management counseling: Effectiveness, Side effects, Dosing range, Duration, Drug interaction and Adherence Diagnosis and Prognosis Counseling: Accuracy of diagnosis, Prognosis over time, Impact of diagnosis on life functions, Problematic behaviors secondary to diagnosis and Adequacy of current interventions Details: I spent 35 minutes reviewing the record, seeing the patient and documenting in the medical record. Counseling provided to the patient/caregiver as outlined below. Addressed patient/caregiver concerns regarding current medication regime including effective adherence. Addressed patient/caregiver concerns regarding diagnosis and prognosis including accuracy of diagnosis, prognosis over time, impact of diagnosis. Addressed patient/caregiver concerns regarding impact of recent stressors. 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 she grew up in [place]. lived with both parents and has 2 younger brothers. she did ok in school; no IEP; gravitated to artistic classes; stated playing in bands age [age]. grad HS and Associates from [employer]. Substance History: tobacco 1-2 cigarettes per day, etoh 2-3 times a week and 1-2 drinks per day, THC in 20s not now Trauma History: none Coding Level of Care Code Est Pt Level 3 (69158) Complex EM visit Add On [id number] Diagnoses Generalized anxiety disorder with panic attacks F41.1; F41.0 Panic anxiety syndrome F41.0
== END 2024-05-07 16:33 | disposition home or self-care (01) ==
LOC: HO.HOP 16:05
PROVIDERS: PCP Internal Medicine; Visit Provider Clinical Nurse Specialist Psychiatric/Mental Health
DX: F41.1 Generalized anxiety disorder (principal); F41.0 Panic disorder [episodic paroxysmal anxiety]
CPT/HCPCS: 99213; G2211

== ENCOUNTER → 2024-05-07 16:05 | Outpatient (BNVA) | payer OTHER, SELFPAY | PROVIDERS: PCP Internal Medicine; Visit Provider Clinical Nurse Specialist Psychiatric/Mental Health | DX: F41.1 Generalized anxiety disorder (principal); F41.0 Panic disorder [episodic paroxysmal anxiety] | CPT/HCPCS: 99212 ==

== ENCOUNTER 2024-05-12 10:13 | Outpatient (AMB) | payer OTHER, SELFPAY ==
--- NOTE | 2024-05-12 10:13 | MHC.OFFVISPS ---
Intake Intake Visit Reasons: consult follow up Scanning Tech Required: No Allergies chlorhexidine Allergy (Severe, Verified 02/25/24 13:34) Anaphylaxis Medication List - Last Reconciled 05/12/24 by Kristi Garcia APRN alprazolam (Xanax) 0.25 mg PO BEDTIME PRN cholecalciferol (vitamin D3) 25 mcg PO DAILY 90 days dicyclomine 10 mg PO TID vilazodone (Viibryd) 20 mg PO DAILY vilazodone 10 mg PO DAILY HPI- Psychiatric Chief Complaint: consult follow up HPI Narrative: vanna is here for follow-up. Her last appointment was very short due to having a panic attack and leaving early. She reports she has had 3 episodes in the last month like that but that is an improvement as she was having more episodes more frequently before current medication. Overall she says she has been feeling better her mood is improved she is feeling more hopeful more confident most of the time she is less anxious. She is doing well at work. She has started a new relationship. She is taking the medication consistently. She denies any side effects from a Viibryd. And she is utilizing the Xanax p.r.n. panic attack. No SI no HI. No medical changes Past Psychiatric History: outpt since age 16. no IPLOC; past trial of wellbutrin, lexapro, lamictal and zoloft all ineffective and possibly caused worsening. she ahas been to ED 1 x for panic attacks. Subjective Subjective Subjective Medication Compliance: Yes Side effects from medications: No Review of Systems Medical Review of Systems: unchanged Mental Status Exam Mental Status Exam Patient Appearance: Well Grooomed and Appropriate Patient Orientation: Person, Place, Time and Situation Level of Consciousness: Awake and Appropriate Patient Behavior: Appropriate Mood Description: Happy and Anxious Affect Description: Happy and Anxious Patient Cognition Impaired: No Ability to Follow Directions: Good Speech Pattern: Clear and Difficulty Finding Words Memory Description: Intact Hallucinations: None Delusions: Not Present Thought Process: Intact Thought Content: positive for Intact Judgement: Good Assessment and Plan Assessment & Plan (1) Generalized anxiety disorder with panic attacks: Status: Acute Code(s): F41.1 - Generalized anxiety disorder; F41.0 - Panic disorder [episodic paroxysmal anxiety] (2) Major depression, recurrent: Status: Acute Qualifiers: Active/Remission status: in partial remission Qualified Code(s): F33.41 - Major depressive disorder, recurrent, in partial remission Code(s): F33.9 - Major depressive disorder, recurrent, unspecified Plan Increase vilazodone to 40 mg daily. Continue to utilize the alprazolam p.r.n. panic. Return in 4-6 weeks Medications: New vilazodone (Viibryd) must administer with a meal/food 40 mg PO DAILY 90 tabs 0RF Refilled alprazolam (Xanax) 0.25 mg PO BEDTIME PRN 30 tabs 1RF panic Discontinued vilazodone (Viibryd) must administer with a meal/food Discontinued Reason: Doctor's Order 20 mg PO DAILY 90 tabs 0RF vilazodone must administer with a meal/food Discontinued Reason: Doctor's Order 10 mg PO DAILY 90 tabs 1RF Counseling and coordination of Care Pt. Self Management counseling: Maintenance-social rhythm, Mod caffeine/ETOH intake and General coping skills Medication management counseling: Effectiveness, Side effects, Dosing range, Duration, Drug interaction and Adherence Diagnosis and Prognosis Counseling: Accuracy of diagnosis, Prognosis over time, Impact of diagnosis on life functions and Adequacy of current interventions Details: I spent [] minutes reviewing the record, seeing the patient and documenting in the medical record. Counseling provided to the patient/caregiver as outlined below. Addressed patient/caregiver concerns regarding current medication regime including effective adherence. Addressed patient/caregiver concerns regarding diagnosis and prognosis including accuracy of diagnosis, prognosis over time, impact of diagnosis. Addressed patient/caregiver concerns regarding impact of recent stressors. 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 she grew up in [place]. lived with both parents and has 2 younger brothers. she did ok in school; no IEP; gravitated to artistic classes; stated playing in bands age [age]. grad HS and Associates from [employer]. Substance History: tobacco 1-2 cigarettes per day, etoh 2-3 times a week and 1-2 drinks per day, THC in 20s not now Trauma History: none Coding Level of Care Code Est Pt Level 4 (92191) Diagnoses Generalized anxiety disorder with panic attacks F41.1; F41.0 Recurrent major depressive disorder, in partial remission F33.41 Active/Remission status: in partial remission
== END 2024-05-12 10:39 | disposition home or self-care (01) ==
LOC: HO.HOP 10:13
PROVIDERS: PCP Internal Medicine; Visit Provider Clinical Nurse Specialist Psychiatric/Mental Health
DX: F41.1 Generalized anxiety disorder (principal); F41.0 Panic disorder [episodic paroxysmal anxiety]; F33.41 Major depressive disorder, recurrent, in partial remission
CPT/HCPCS: 99214

== ENCOUNTER → 2024-05-12 10:13 | Outpatient (BNVA) | payer OTHER, SELFPAY | PROVIDERS: PCP Internal Medicine; Visit Provider Clinical Nurse Specialist Psychiatric/Mental Health | DX: F41.1 Generalized anxiety disorder (principal); F41.0 Panic disorder [episodic paroxysmal anxiety]; F33.41 Major depressive disorder, recurrent, in partial remission | CPT/HCPCS: 99212 ==

== ENCOUNTER 2024-06-08 10:42 | Outpatient (AMB) | payer OTHER, SELFPAY ==
--- NOTE | 2024-06-08 10:44 | A.OFFPSYCH_ITS ---
Intake Intake Visit Reasons: consult follow up Softlines Supervisor Required: No Allergies chlorhexidine Allergy (Severe, Verified 02/25/24 13:34) Anaphylaxis Medication List - Last Reconciled 06/08/24 by Kristi Garcia APRN alprazolam (Xanax) 0.25 mg PO BEDTIME PRN cholecalciferol (vitamin D3) 25 mcg PO DAILY 90 days dicyclomine 10 mg PO TID vilazodone (Viibryd) 10 mg orally take one 10mg tablet in addition to 20mg for total daily dose of 30mg daily; must administer with a meal/food vilazodone (Viibryd) 20 mg PO DAILY HPI- Psychiatric Chief Complaint: consult follow up HPI Narrative: pt reports worsening symptoms on the 40mg of viibryd - more anxiety more agitation; pt resumed 30mg daily. feels 30mg is very helpful; No panic attacks since going back down to 30mg. Pt reports significant panic attack with self harm on thanksgiving due to feeling pressure of may people in the house and didn't feel she could easily excuse herself. pt reports once the panic attack starts it is very hard for her to reduce her anxiety and it spirals into negative self thoughts, mentally beating herself up, unable to forgive self for having a panic. she reports significant disruption in functioning over the years due to panic attacks, self harm and this effects her self esteem; discussed with patient again seeking out therapist to work with. she denies SI or Hi. Past Psychiatric History: outpt since age 16. no IPLOC; past trial of wellbutrin, lexapro, lamictal and zoloft all ineffective and possibly caused worsening. she ahas been to ED 1 x for panic attacks. Subjective Subjective Subjective Medication Compliance: Yes Side effects from medications: No Review of Systems Medical Review of Systems: unchanged Mental Status Exam Mental Status Exam Patient Appearance: Well Grooomed and Appropriate Patient Orientation: Person, Place, Time and Situation Level of Consciousness: Awake, Appropriate and Alert Patient Behavior: Appropriate, Anxious and Poor Eye Contact Mood Description: Anxious Affect Description: Constricted and Anxious Patient Cognition Impaired: No Ability to Follow Directions: Good Speech Pattern: Difficulty Finding Words, Soft-Spoken and Mumbled Memory Description: Intact Hallucinations: None Delusions: Not Present Thought Process: Intact Thought Content: positive for Intact Judgement: Good Assessment and Plan Assessment & Plan (1) Generalized anxiety disorder with panic attacks: Status: Acute Code(s): F41.1 - Generalized anxiety disorder; F41.0 - Panic disorder [episodic paroxysmal anxiety] (2) Vitamin D deficiency: Status: Acute Code(s): E55.9 - Vitamin D deficiency, unspecified (3) Major depression, recurrent: Status: Acute Qualifiers: Active/Remission status: in partial remission Qualified Code(s): F33.41 - Major depressive disorder, recurrent, in partial remission Code(s): F33.9 - Major depressive disorder, recurrent, unspecified (4) Panic anxiety syndrome: Status: Acute Code(s): F41.0 - Panic disorder [episodic paroxysmal anxiety] Plan continue viibryd 30mg daily continue prn ativan retrun in 6-8 weeks Medications: Refilled alprazolam (Xanax) 0.25 mg PO BEDTIME PRN 30 tabs 1RF panic vilazodone (Viibryd) 10 mg orally take one 10mg tablet in addition to 20mg for total daily dose of 30mg daily; must administer with a meal/food 30 tabs 2RF vilazodone (Viibryd) must administer with a meal/food 20 mg PO DAILY 30 tabs 2RF Counseling and coordination of Care Pt. Self Management counseling: Maintenance-social rhythm, General coping skills and Problem solving Details-Self Mgmt counseling: importance of outpt therapy Medication management counseling: Effectiveness, Side effects, Dosing range, Duration, Drug interaction and Adherence Diagnosis and Prognosis Counseling: Accuracy of diagnosis, Prognosis over time, Impact of diagnosis on life functions, Impact of family relationship, Problematic behaviors secondary to diagnosis and Adequacy of current interventions Details: I spent 45 minutes reviewing the record, seeing the patient and documenting in the medical record. Counseling provided to the patient/caregiver as outlined below. Addressed patient/caregiver concerns regarding current medication regime including effective adherence. Addressed patient/caregiver concerns regarding diagnosis and prognosis including accuracy of diagnosis, prognosis over time, impact of diagnosis. Addressed patient/caregiver concerns regarding impact of recent stressors. 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 she grew up in [place]. lived with both parents and has 2 younger brothers. she did ok in school; no IEP; gravitated to artistic classes; stated playing in bands age [age]. grad HS and Associates from [employer]. Substance History: tobacco 1-2 cigarettes per day, etoh 2-3 times a week and 1-2 drinks per day, THC in 20s not now Trauma History: none Coding Level of Care Code Est Pt Level 5 (51412) Diagnoses Generalized anxiety disorder with panic attacks F41.1; F41.0 Vitamin D deficiency E55.9 Recurrent major depressive disorder, in partial remission F33.41 Active/Remission status: in partial remission Panic anxiety syndrome F41.0
== END 2024-06-08 11:23 | disposition home or self-care (01) ==
LOC: HO.HOP 10:42
PROVIDERS: PCP Internal Medicine; Visit Provider Clinical Nurse Specialist Psychiatric/Mental Health
DX: F41.1 Generalized anxiety disorder (principal); F41.0 Panic disorder [episodic paroxysmal anxiety]; E55.9 Vitamin D deficiency, unspecified; F33.41 Major depressive disorder, recurrent, in partial remission
CPT/HCPCS: 99215

== ENCOUNTER → 2024-06-08 10:42 | Outpatient (BNVA) | payer OTHER, SELFPAY | PROVIDERS: PCP Internal Medicine; Visit Provider Clinical Nurse Specialist Psychiatric/Mental Health | DX: F41.1 Generalized anxiety disorder (principal); F41.0 Panic disorder [episodic paroxysmal anxiety]; F33.41 Major depressive disorder, recurrent, in partial remission; E55.9 Vitamin D deficiency, unspecified | CPT/HCPCS: 99212 ==

== ENCOUNTER 2024-07-30 13:40 | Outpatient (AMB) | payer OTHER, SELFPAY ==
--- NOTE | 2024-07-30 13:44 | A.OFFPSYCH_ITS ---
Intake Intake Visit Reasons: depression Butcherette Required: No Allergies chlorhexidine Allergy (Severe, Verified 02/25/24 13:34) Anaphylaxis Medication List - Last Reconciled 07/30/24 by Kristi Garcia APRN alprazolam (Xanax) 0.25 mg PO BEDTIME PRN cholecalciferol (vitamin D3) 25 mcg PO DAILY 90 days dicyclomine 10 mg PO TID vilazodone 20 mg PO DAILY vilazodone 10 mg PO DAILY HPI- Psychiatric Chief Complaint: depression HPI Narrative: pt doing well with depression and anxiety; she continues to have episodes of intense panic and self lothing - during these episodes she can spiral into self blame and self harm; she is working on DBT skills from a workbook; she is having trouble finding a therapist and also feel ambivalent about seeing another therapist. she feels sshe has seen therpaists her whole adult life; she continues to have trouble working consistently and has financial stress because of it. she takes the meds consistently; no side effects; no SI or HI; we discussed php in future if needed. discussed possibly applying for disability since she has trouble consistently holding down a traditional job. she will think about it. Past Psychiatric History: outpt since age 16. no IPLOC; past trial of wellbutrin, lexapro, lamictal and zoloft all ineffective and possibly caused worsening. she ahas been to ED 1 x for panic attacks. Subjective Subjective Subjective Medication Compliance: Yes Side effects from medications: No Review of Systems Medical Review of Systems: unchanged Mental Status Exam Mental Status Exam Patient Appearance: Well Grooomed and Appropriate Patient Orientation: Person, Place, Time and Situation Level of Consciousness: Awake and Appropriate Patient Behavior: Appropriate, Cooperative, Avoidant (for short period when appeared to be panicking) and Poor Eye Contact (periodically when feeling panicked) Mood Description: Anxious and Sad Affect Description: Anxious and Sad Patient Cognition Impaired: No Ability to Follow Directions: Good Speech Pattern: Clear, Difficulty Finding Words (periodically ) and Appropriate Memory Description: Intact Hallucinations: None Delusions: Not Present Thought Process: Distracted Thought Content: positive for Preoccupation Judgement: Fair Assessment and Plan Assessment & Plan (1) Generalized anxiety disorder with panic attacks: Status: Acute Code(s): F41.1 - Generalized anxiety disorder; F41.0 - Panic disorder [episodic paroxysmal anxiety] (2) Major depressive disorder, recurrent episode, mild with mixed features: Status: Acute Code(s): F33.0 - Major depressive disorder, recurrent, mild Plan viibryd 20 mg daily inaddition to 10 mg daily for total daily dose of 30 mg daily xanax prn panic retrun in 8 weeks Medications: Discontinued vilazodone (Viibryd) must administer with a meal/food Discontinued Reason: Doctor's Order 30 mg (1.5 x 20 mg) PO DAILY 45 tabs 2RF Counseling and coordination of Care Pt. Self Management counseling: Maintenance-social rhythm, Mindfulness, Mod caffeine/ETOH intake, Sleep hygiene and General coping skills Medication management counseling: Effectiveness, Side effects, Dosing range, Duration, Drug interaction and Adherence Diagnosis and Prognosis Counseling: Accuracy of diagnosis, Prognosis over time, Impact of diagnosis on life functions, Impact of family relationship, Problematic behaviors secondary to diagnosis and Adequacy of current interventions Details: I spent 40 minutes reviewing the record, seeing the patient and documenting in the medical record. Counseling provided to the patient/caregiver as outlined below. Addressed patient/caregiver concerns regarding current medication regime including effective adherence. Addressed patient/caregiver concerns regarding diagnosis and prognosis including accuracy of diagnosis, prognosis over time, impact of diagnosis. Addressed patient/caregiver concerns regarding impact of recent stressors. 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 she grew up in [place]. lived with both parents and has 2 younger brothers. she did ok in school; no IEP; gravitated to artistic classes; stated playing in bands age [age]. grad HS and Associates from [employer]. Substance History: tobacco 1-2 cigarettes per day, etoh 2-3 times a week and 1-2 drinks per day, THC in 20s not now Trauma History: none Coding Level of Care Code Est Pt Level 4 (71447) Diagnoses Generalized anxiety disorder with panic attacks F41.1; F41.0 Major depressive disorder, recurrent episode, mild with mixed features F33.0
== END 2024-07-30 14:17 | disposition home or self-care (01) ==
LOC: HO.HOP 13:40
PROVIDERS: PCP Internal Medicine; Visit Provider Clinical Nurse Specialist Psychiatric/Mental Health
DX: F41.1 Generalized anxiety disorder (principal); F41.0 Panic disorder [episodic paroxysmal anxiety]; F33.0 Major depressive disorder, recurrent, mild
CPT/HCPCS: 99214

== ENCOUNTER → 2024-07-30 13:40 | Outpatient (BNVA) | payer OTHER, SELFPAY | PROVIDERS: PCP Internal Medicine; Visit Provider Clinical Nurse Specialist Psychiatric/Mental Health | DX: F41.1 Generalized anxiety disorder (principal); F41.0 Panic disorder [episodic paroxysmal anxiety]; F33.0 Major depressive disorder, recurrent, mild | CPT/HCPCS: 99212 ==

== ENCOUNTER 2024-09-18 14:13 | Outpatient (REF) | payer OTHER, SELFPAY ==
--- NOTE | ~2024-09-18 | XR_ITS ---
EXAMINATION: XR CERVICAL SPINE CLINICAL INFORMATION: M54.2 - Cervicalgia COMPARISON: None available. TECHNIQUE: 2 views of the cervical spine were obtained. FINDINGS: Craniocervical junction is intact. Reverse curvature apex at C6. Marginal osteophyte formation at C5-6 and C6-7 levels. No acute cortical disruption or gross malalignment. No lytic or blastic lesions. XR/XR cervical spine 2V IMPRESSION: Cervical spondylosis C5-6 and C6-7 levels. Electronically signed by: Randall Chavira MD 09/21/2024 02:09 PM EDT
== END 2024-09-18 14:14 | disposition home or self-care (01) ==
LOC: HO.HMGCX 14:13
PROVIDERS: PCP Internal Medicine; Visit Provider Internal Medicine
DX: R00.2 Palpitations (principal); R07.89 Other chest pain; S09.90XA Unspecified injury of head, initial encounter; F10.20 Alcohol dependence, uncomplicated; M54.2 Cervicalgia; F41.1 Generalized anxiety disorder; F41.0 Panic disorder [episodic paroxysmal anxiety]; F33.0 Major depressive disorder, recurrent, mild; E55.9 Vitamin D deficiency, unspecified
CPT/HCPCS: 72040; 93005; 96127; 99212

== ENCOUNTER 2024-09-18 14:13 | Outpatient (AMB) | payer OTHER, SELFPAY ==
--- NOTE | 2024-09-18 14:15 | MHC.PC.OV ---
Vital Signs 09/18/24 14:16 Height 5 ft 7 in Weight 180 lb 2 oz BMI 28.2 BP 122/80 Blood Pressure Location Lt brachial Position Sitting Pulse 96 Pulse Source Pulse Oximeter Pulse Oximetry (%) 100 Oxygen Delivery Method Room Air Intake Visit Reasons: Heart palpitation Allergies chlorhexidine Allergy (Severe, Verified 09/18/24 14:16) Anaphylaxis Medication List - Last Reconciled 09/18/24 by Onesimo Saenz MD alprazolam (Xanax) 0.25 mg PO BEDTIME PRN cholecalciferol (vitamin D3) 25 mcg PO DAILY 90 days dicyclomine 10 mg PO TID vilazodone 20 mg PO DAILY vilazodone 10 mg PO DAILY Tobacco use date assessed: 09/18/24 Dental Screening Dental Screen Date: 09/18/24 Did you have a dental visit in the last 12 months?: No Did you have a dental problem in the last 6 months where you did not have access to dental care?: No Was dental information given to patient?: Patient has dentist HPI Heart palpitation HPI Details History - The patient is a 29-year-old female presenting with palpitations and shortness of breath. - She has experienced palpitations with increased frequency, coupled with shortness of breath, prominently at night when lying down, amidst a background of anxiety. - A recent emergency room visit did not include an EKG, and she left prematurely due to anxiety. Chest x-ray was done in emergency room but patient is not aware of report She does not have any fever chills or pleuritic chest pain - She notes a decrease in activity levels and weight gain, with slight difficulty breathing upon exertion. - An injury to the head and neck occurred in mid-July, resulting in neck stiffness and occasional numbness in the arms, though she was vigilant for concussion symptoms, which did not present. - She reports regular alcohol use as well as attempts at reducing intake. Medications - Vitamin D Supplement for Vitamin D deficiency. Problem List - Palpitations - Gastroesophageal Reflux Disease (GERD) possibility causing chest discomfort - Anxiety seeing a psych treatment through them - Neck stiffness - Alcohol use Diagnostic results - Labs: Liver enzymes, kidney function tests, and anemia panel are within normal limits as per previous labs from January. - Tests: Chest x-ray showed normal results. Patient Instructions - Reduce alcohol consumption as it may aggravate symptoms. Drinks 1 or 2 beer every night 5 days a week - Take prescribed medication pantoprazole 40 mg at night on an empty stomach for symptomatic relief. - Maintain a lower pillow to decrease neck strain. - Follow up for an x-ray of the neck - Wear a Holter monitor for three days as arranged by the cardiac lab. - EKG done today shows normal sinus rhythm no acute findings Follow-up 6 weeks Review of Systems General: No fever no chills neurological: No headaches no dizziness ear nose throat: No sore throat no hearing difficulty no ear pain cardiovascular: No syncope gastrointestinal: No nausea vomiting or diarrhea endocrine: No polyuria polydipsia no heat intolerance genitourinary: No dysuria skin: No new complaints Physical Exam general: No acute distress HEENT: No acute findings neck: Full range of motion without any discomfort respiratory system: Able to talk in full sentences, no audible wheeze, no stridor, shortness of breath noted, especially at night cardiovascular: S1-S2, regular in rate and rhythm gastrointestinal: No pain extremities: No new findings [employer]ING [employer] TENDER: Alert awake oriented x3 motor sensory intact skin: Normal turgor [facility] Medical History Major depression, recurrent Social History Housing: House Patient Tobacco Use Status: Current everyday Tobacco user Cigarettes Per Day: 2 e-Cigarette/Vaping Use: Never Used service: No Current occupational status: employed Cognitive needs: No Hearing needs: No Vision needs: No Questionnaire PHQ-9 Over the last 2 weeks, how often have you been bothered by any of the following problems? 1. Little interest or pleasure in doing things: not at all 2. Feeling down, depressed, or hopeless: several days 3. Trouble falling or staying asleep, or sleeping too much: not at all 4. Feeling tired or having little energy: several days 5. Poor appetite or overeating: not at all 6. Feeling bad about yourself - or that you are a failure or have let yourself or your family down: several days 7. Trouble concentrating on things, such as reading the newspaper or watching television: not at all 8. Moving or speaking so slowly that other people could have noticed. Or the opposite - being so fidgety or restless that you have been moving around a lot more than usual: several days 9. Thoughts that you would be better off or of hurting yourself in some way: several days Total score: 5 Depression Screening Interpretation: Negative Depression Screening Done: Yes 81870 - PHQ-9 Billing: Yes Source: Developed by Drs. Randall Wright, Theresa Ponce, Rikki Alvarez and colleagues, with an educational quang from [employer]. Thrive Questionnaire Date Thrive assessed: 09/18/24 I am a: Patient What is your living situation today?: I have a steady place to live Within the past 12 months, did the food you bought not last and you didn't have the money to get more?: Sometimes True Within the past 12 months, did you worry whether your food would run out before you got money to buy more?: Sometimes True Do you have trouble paying for medicines?: No Do you have trouble getting transportation to medical appointments?: No Do you have trouble paying your heating and electricity bill?: I choose not to answer this question Do you have trouble taking care of your child, family member or friend?: No Do you have trouble with day-to-day activities such as bathing, preparing meals, shopping, managing finances, etc.?: Yes Are you currently unemployed and looking for a job?: No Are you interested in more education?: No Please select the resources that you would like help with: None Currently or been in a relationship where the following occur: No concerns reported THRIVE Score: 2 AUDIT C Alcohol Use Questionnaire (AUDIT-C) 1. How often do you have a drink containing alcohol?: 4 or more times a week 2. How many drinks containing alcohol do you have on a typical day when you are drinking?: 1 or 2 3. How often do you have six or more drinks on one occasion?: Less than monthly Total Score: 5 Score Reviewed/Action Taken: Yes PATRICIA-7 AMB Questionnaire PATRICIA-7 Date PATRICIA - 7 assessed: 09/18/24 Feeling nervous, anxious, or on edge: 2 = More than half the days Not being able to stop or control worryin = More than half the days Worrying too much about different things: 1 = Several days Trouble relaxin = Several days Being so restless that it is hard to sit still: 1 = Several days Becoming easily annoyed or irritable: 1 = Several days Feeling afraid as if something awful might happen: 1 = Several days Total PATRICIA-7 score (0-4 normal; 5-9 mild; 10-14 moderate; 15-21 severe): 9 Source: Developed by Drs. Randall Wright, Theresa Ponce, Rikki Alvarez and colleagues, with an educational quang from [employer]. PATRICIA-7 Assessment Billing PATRICIA-7 Assessment Tool: PATRICIA-7 Assessment 07288 Physical exam (Primary Care) Vital Signs: Last Vital Signs Pulse 96 09/18/24 14:16 BP 122/80 09/18/24 14:16 Pulse Ox 100 09/18/24 14:16 Oxygen Delivery Method Room Air 09/18/24 14:16 BMI result Body Mass Index 28.2 Tobacco/Smoking Status: Tobacco use Status Tobacco use date assessed 09/18/24 09/18/24 14:23 Patient Tobacco Use Status Current everyday Tobacco 09/18/24 14:15 e-Cigarette/Vaping Use Never Used 09/18/24 14:15 PHQ-9: PHQ-9 Score PHQ-9: Total score 5 09/18/24 14:40 Depression Screening Interpretation: Negative Thrive Assessment: Date of Thrive Assessment Date Thrive assessed 09/18/24 09/18/24 14:23 Currently or been in a relationship where the following occur: No concerns reported Office Procedures EKG 25723-[id number], Complete Coding Level of Care Code Est Pt Level 5 (39584) Diagnoses Palpitation R00.2 Non-cardiac chest pain R07.89 Injury of head, initial encounter S09.90XA Encounter type: initial encounter Alcohol dependence, continuous drinking behavior F10.20 Neck pain M54.2 Generalized anxiety disorder with panic attacks F41.1; F41.0 Major depressive disorder, recurrent episode, mild with mixed features F33.0 Vitamin D deficiency E55.9 CPT Codes EKG - CPT: 76874-Ispnfhshvykdoomav, Complete ([id number]) Additional Codes PATRICIA-7 Assessment Billing - PATRICIA-7 Assessment Tool: PATRICIA-7 Assessment 88936 ([id number]) PHQ-9 - 43672 - PHQ-9 Billing: Yes ([id number]) Time Spent (min) 40 Comment Reviewing chart/ labs/hhog-tc-zita/EKGs/coordination of care Assessment & Plan Assessment & Plan (1) Palpitation: Code(s): R00.2 - Palpitations Category: Medical (2) Non-cardiac chest pain: Code(s): R07.89 - Other chest pain Category: Medical (3) Head injury: Code(s): S09.90XA - Unspecified injury of head, initial encounter Category: Medical Qualifiers: Encounter type: initial encounter Qualified Code(s): S09.90XA - Unspecified injury of head, initial encounter (4) Alcohol dependence, continuous drinking behavior: Code(s): F10.20 - Alcohol dependence, uncomplicated Category: Medical (5) Neck pain: Code(s): M54.2 - Cervicalgia Category: Medical (6) Generalized anxiety disorder with panic attacks: Code(s): F41.1 - Generalized anxiety disorder; F41.0 - Panic disorder [episodic paroxysmal anxiety] Category: Medical (7) Major depressive disorder, recurrent episode, mild with mixed features: Code(s): F33.0 - Major depressive disorder, recurrent, mild Category: Medical (8) Vitamin D deficiency: Code(s): E55.9 - Vitamin D deficiency, unspecified Category: Medical Plan History - The patient is a 29-year-old female presenting with palpitations and shortness of breath. - She has experienced palpitations with increased frequency, coupled with shortness of breath, prominently at night when lying down, amidst a background of anxiety. - A recent emergency room visit did not include an EKG, and she left prematurely due to anxiety. Chest x-ray was done in emergency room but patient is not aware of report She does not have any fever chills or pleuritic chest pain - She notes a decrease in activity levels and weight gain, with slight difficulty breathing upon exertion. - An injury to the head and neck occurred in mid-July, resulting in neck stiffness and occasional numbness in the arms, though she was vigilant for concussion symptoms, which did not present. - She reports regular alcohol use as well as attempts at reducing intake. Medications - Vitamin D Supplement for Vitamin D deficiency. Problem List - Palpitations - Gastroesophageal Reflux Disease (GERD) possibility causing chest discomfort - Anxiety seeing a psych treatment through them - Neck stiffness - Alcohol use Diagnostic results - Labs: Liver enzymes, kidney function tests, and anemia panel are within normal limits as per previous labs from January. - Tests: Chest x-ray showed normal results. Patient Instructions - Reduce alcohol consumption as it may aggravate symptoms. Drinks 1 or 2 beer every night 5 days a week - Take prescribed medication pantoprazole 40 mg at night on an empty stomach for symptomatic relief. - Maintain a lower pillow to decrease neck strain. - Follow up for an x-ray of the neck - Wear a Holter monitor for three days as arranged by the cardiac lab. - EKG done today shows normal sinus rhythm no acute findings Follow-up 6 weeks Orders: Orders XR cervical spine 2V Today M54.2 - Cervicalgia, S09.90XA - Unspecified injury of head, initial encounter ECG 3 day holter monitor Today R00.2 - Palpitations Medications: New pantoprazole 40 mg PO DAILY 90 tabs 0RF
[2024-09-18 14:16] VITALS: BP 122/80; PULSE 96; O2SAT 100; BMI 28.2
--- OUTSIDE RECORDS SUMMARY | 2024-09-18 15:54 | XMS_ITS | Continuity of Care Document ---
Author Organization [facility] ter Address [address] [place] [id number] Care Team Providers Care Ladies Suit Operator Name Role Phone Mo SUTTON, [facility] Primary Care Physician Encounter [facility] ACCT R [id number] Date(s): 09/15/24 - 09/15/[address] [address]- Discharge Disposition: A-D/C Walkout Attending Physician: Not on Staff, Attending MD Admitting Physician: Not on Staff, Admitting MD Referring Physician: Not on Staff, Referring MD Encounter Type: Disch ES Allergies, Adverse Reactions, Alerts No Known Allergies Immunizations Given and Recorded Vaccine Date Status Refusal Reason [id number] 12y+ bivalent booster vax 03/23/22 Recorded SARS-CoV-2 (COVID-19) mRNA BNT-162b2 vac 05/18/21 Recorded SARS-CoV-2 (COVID-19) mRNA BNT-162b2 vac 10/26/20 Recorded SARS-CoV-2 (COVID-19) mRNA BNT-162b2 vac 10/05/20 Recorded tetanus/diphtheria/pertussis, acel(Tdap) 1 09/06/20 Given influenza virus vaccine, inactivated 2 05/05/20 Gi matthew 1Result Comment: [facility] [id number] 2Result Comment: [facility] [id number] Medications ALPRAZolam 0.25 mg oral tablet 0.25 mg, 1, tablet, By Mouth, 2 times a day, Refills 0, Maintenance, 10/10/22 12:31:00 PM EDT, Partial fill upon patient request if the prescription is for a schedule II opioid drug. Start Date: 10/10/22 Status: Ordered Repeat number: 1 vilazodone 20 mg oral tablet TAKE 1 TABLET BY MOUTH EVERY DAY Start Date: 10/10/22 Status: Ordered Repeat number: 1 Problem List Condition Confirmation Course Effective Dates Status Health St atus Informant Acne vulgaris Confirmed Active Major depression in full remission Confirmed Active Depression Confirmed Active Pompholyx Confirmed Active Results Radiology Reports * Exam Date Time Procedure Performing Provider Status 09/15/24 1:53 PM Chest 2 Views Frontal and Lat Angy Mccall; Abigail (Verified) Notes: (Chest 2 Views Frontal and Lat) Reason For Exam: Chest Pain;Other: RESULT: Chest 2 Views Frontal and Lat Examination: Chest performed on 09/15/2024. History: Palpitations and shortness of breath. Findings: Frontal and lateral views of the chest are compared to a prior study dated 10/15/2019. The cardiac and mediastinal silhouettes are within normal limits. The lungs are clear. The osseous and soft tissue structures are unremarkable. Impression: There is no acute cardiopulmonary disease. WSN: [id number] Ordering Physician: Sav Hale Dictated By: Trisha Linder MD Dictated Date/Time: 09/15/24 2:25 pm Reviewed By: Trisha Linder MD Signed By: Trisha Linder MD Signed Date/Time: 09/15/24 2:25 pm Transcribed By: SERVANDO Transcribed Date/Time: 09/15/24 2:24 pm Vital Signs Most recent to oldest [Reference Range]: 1 2 Height 170 cm (09/15/24 1:18 PM) Weight 80.4 kg (09/15/24 1:18 PM) Oxygen Saturation [94-100 %] 100 % (09/15/24 1:18 PM) 100 % (09/15/24 1:11 PM) Pulse Rate [55-90 bpm] 77 bpm (09/15/24 1:18 PM) 80 bpm (09/15/24 1:11 PM) Body Mass Index [18.5-24.99 kg/m2] 27.82 kg/m2 *H* (09/15/24 1:18 PM) Blood Pressure [90-138/55-84 mm Hg] 125/ 75mm Hg (09/15/24 1:18 PM) Respiratory Rate [16-30 br/min] 18 br/mi n (09/15/24 1:18 PM) Temperature [96.8-100.4 DegF] 98.1 DegF (09/15/24 1:18 PM) Mode of Delivery (Oxygen) Room air (09/15/24 1:18 PM) Room air (09/15/24 1:11 PM) Blood pressure sites Arm, left (09/15/24 1:18 PM) Temperature Route Oral (09/15/24 1:18 PM) Dry Weight 80.4 kg (09/15/24 1:18 PM) Weight Obtained Via Standing scale (09/15/24 1:18 PM) Dry Weight Obtained Via Standing scale (09/15/24 1:18 PM) Social History Social History Type Response Smoking Status Never (less than 100 in lifetime) entered on: 05/19/19 Sex Sex Representation Female (finding) EKG study * Event Display: ECG 12-Lead Authored Date: Please click on pdf link to open report * Event Display: ECG 12-Lead Authored Date: Ventricular Rate: 68 BPM Atrial Rate: 68 BPM P-R Interval: 150 ms QRS Duration: 96 ms Q-T Interval: 362 ms QTC Calculation(Bazett): 384 ms P Higginson: 57 degrees R Higginson: 47 degrees T Higginson: 52 degrees Normal sinus rhythm Normal ECG When compared with ECG of 15-Oct-2019 23:09, No significant change was found Confirmed by Zach Betancourt ([id number]) on 09/15/2024 3:38:46 PM Barre: Zach Betancourt * Event Display: EKG Authored Date: Patient Care team information Care Team Personnel Name: Selwyn [facility] Position: [facility] Physician - Primary Care Member Role: PCP Address: [address] [place] [id number] Telecom: Care Team Related Persons Name: ANTHONY ELY Insurance Providers Guarantor name: ALTAGRACIA Health Plan Information #: 1 Payer: [employer] Member Number: [id number] Policy Number: NA Group Number: NA Health Plan Information #: 2 Payer: [employer] Member Number: [id number] Policy Number: NA Group Number: NA
== END 2024-09-18 14:47 | disposition home or self-care (01) ==
LOC: HO.HMCC 14:14
PROVIDERS: PCP Internal Medicine; Visit Provider Internal Medicine
DX: R00.2 Palpitations (principal); R07.89 Other chest pain; S09.90XA Unspecified injury of head, initial encounter; F10.20 Alcohol dependence, uncomplicated; M54.2 Cervicalgia; F41.1 Generalized anxiety disorder; F41.0 Panic disorder [episodic paroxysmal anxiety]; F33.0 Major depressive disorder, recurrent, mild; E55.9 Vitamin D deficiency, unspecified

== ENCOUNTER → 2024-09-18 14:53 | Outpatient (BNV) | payer OTHER, SELFPAY | PROVIDERS: PCP Internal Medicine; Visit Provider Radiology Diagnostic Radiology | DX: M47.892 Other spondylosis, cervical region (principal) | CPT/HCPCS: 72040 ==

== ENCOUNTER 2024-09-29 15:08 | Outpatient (AMB) | payer OTHER, SELFPAY ==
--- NOTE | 2024-09-29 15:09 | MHC.OFFVISPS ---
Intake Intake Visit Reasons: f/u consultation Allergies chlorhexidine Allergy (Severe, Verified 09/18/24 14:16) Anaphylaxis Medication List - Last Reconciled 09/29/24 by Kristi Garcia APRN alprazolam (Xanax) 0.25 mg PO BEDTIME PRN cholecalciferol (vitamin D3) 25 mcg PO DAILY 90 days dicyclomine 10 mg PO TID pantoprazole 40 mg PO DAILY vilazodone 20 mg PO DAILY vilazodone 10 mg PO DAILY HPI- Psychiatric Chief Complaint: f/u consultation HPI Narrative: pt reports improvement in depression. she continues to have anxiety at times; she also has episodes of feeling overwhelmed by external stimuli which then triggers negative thinking especially about her self and sometimes leads to self harm; she iuses DBT skills that she has learned in the past but sometimes these are not enogh; billyoften does not understand the triggers fully. I have raised the possibility of high functioning autism with her. she says she has always felt like she is neurodivergant but past providers have told her she couldn't possibly have autism. I talked to her about autism or neurodivergence is thought to be on a spectrum now. The vilazedone has been helpful for depression and the xanax helps a little for panic but does not help much for these episodes that lead to break down. We discussed trila of abilify adjunct with the antidepressant may help prevent the epsiodes. She is in agreement with a trial. Past Psychiatric History: outpt since age 16. no IPLOC; past trial of wellbutrin, lexapro, lamictal and zoloft all ineffective and possibly caused worsening. she ahas been to ED 1 x for panic attacks. Subjective Subjective Subjective Medication Compliance: Yes Side effects from medications: No Review of Systems Medical Review of Systems: unchanged Mental Status Exam Mental Status Exam Patient Appearance: Well Grooomed and Appropriate Patient Orientation: Person, Place, Time and Situation Level of Consciousness: Awake, Appropriate and Alert Patient Behavior: Restless, Anxious, Distractible and Poor Eye Contact Mood Description: Fearful and Anxious Affect Description: Constricted, Fearful, Anxious and Flat Patient Cognition Impaired: No Ability to Follow Directions: Good Speech Pattern: Difficulty Finding Words and Long Pauses Memory Description: Intact Hallucinations: None Delusions: Not Present Thought Process: Distracted Thought Content: positive for [place] Judgement: Fair Telehealth Telehealth Telehealth Platform: Other (please specify) ([email or web address]) Location of provider rendering services: practice address Location of patient: address on file Patient Identification confirmed using: Name, : Yes Telehealth method: video Patient verbally consented to treatment: Yes Patient verbally consented to billing insurance company: Yes Patient informed of any privacy concerns related to visit: Yes Minutes spent on Phone/Video with Pt.: 30 Assessment and Plan Assessment & Plan (1) Major depressive disorder, recurrent episode, mild with mixed features: Status: Acute Code(s): F33.0 - Major depressive disorder, recurrent, mild (2) Generalized anxiety disorder with panic attacks: Status: Acute Code(s): F41.1 - Generalized anxiety disorder; F41.0 - Panic disorder [episodic paroxysmal anxiety] Plan rule out autism spectrum trial of abilify 2.5mg daily follow up in 7-8 weeks Medications: New aripiprazole (Abilify) 2.5 mg (1/2 x 5 mg) PO DAILY 45 tabs 1RF Refilled alprazolam (Xanax) 0.25 mg PO BEDTIME PRN 15 tabs 1RF panic vilazodone must administer with a meal/food; take one tablet in addition to 20mg daily for total daily dose of 30mg daily 10 mg PO DAILY 90 tabs 1RF vilazodone must administer with a meal/food; take one table in addition to a 10 mg tablet for total daily dose of 30mg 20 mg PO DAILY 90 tabs 1RF Counseling and coordination of Care Pt. Self Management counseling: Maintenance-social rhythm, Sleep hygiene, Behavior activation, General coping skills and Problem solving Medication management counseling: Effectiveness, Side effects, Dosing range, Duration, Drug interaction and Adherence Diagnosis and Prognosis Counseling: Accuracy of diagnosis, Prognosis over time, Impact of diagnosis on life functions, Impact of family relationship, Problematic behaviors secondary to diagnosis and Adequacy of current interventions Details: I spent 35 minutes reviewing the record, seeing the patient and documenting in the medical record. Counseling provided to the patient/caregiver as outlined below. Addressed patient/caregiver concerns regarding current medication regime including effective adherence. Addressed patient/caregiver concerns regarding diagnosis and prognosis including accuracy of diagnosis, prognosis over time, impact of diagnosis. Addressed patient/caregiver concerns regarding impact of recent stressors. 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 she grew up in [place]. lived with both parents and has 2 younger brothers. she did ok in school; no IEP; gravitated to artistic classes; stated playing in bands age [age]. grad HS and Associates from [employer]. Substance History: tobacco 1-2 cigarettes per day, etoh 2-3 times a week and 1-2 drinks per day, THC in 20s not now Trauma History: none Coding Level of Care Code Tele Est Pt Level 4 (19241) Diagnoses Major depressive disorder, recurrent episode, mild with mixed features F33.0 Generalized anxiety disorder with panic attacks F41.1; F41.0
== END 2024-09-29 16:39 | disposition home or self-care (01) ==
LOC: HO.HOP 15:08
PROVIDERS: PCP Internal Medicine; Visit Provider Clinical Nurse Specialist Psychiatric/Mental Health
DX: F33.0 Major depressive disorder, recurrent, mild (principal); F41.1 Generalized anxiety disorder; F41.0 Panic disorder [episodic paroxysmal anxiety]
CPT/HCPCS: 98006

== ENCOUNTER → 2024-09-29 15:08 | Outpatient (BNVA) | payer OTHER, SELFPAY | PROVIDERS: PCP Internal Medicine; Visit Provider Clinical Nurse Specialist Psychiatric/Mental Health ==

== ENCOUNTER → 2024-10-07 13:32 | Outpatient (REF) | payer OTHER, SELFPAY | LOC: HO.CARD 13:32 | PROVIDERS: PCP Internal Medicine; Visit Provider Internal Medicine | DX: R00.2 Palpitations (principal) | CPT/HCPCS: 93242 ==

== ENCOUNTER → 2024-10-07 13:37 | Outpatient (BNV) | payer OTHER, SELFPAY | PROVIDERS: PCP Internal Medicine; Visit Provider Internal Medicine | DX: I49.3 Ventricular premature depolarization (principal); R00.2 Palpitations | CPT/HCPCS: 93244 ==

== ENCOUNTER 2024-11-13 09:05 | Outpatient (AMB) | payer OTHER, SELFPAY ==
--- NOTE | 2024-11-13 10:35 | A.OFFPC_ITS ---
Intake Visit Reasons: follow up with holter monitor/xray results Allergies chlorhexidine Allergy (Severe, Verified 09/18/24 14:16) Anaphylaxis Medication List - Last Reconciled 11/13/24 by Onesimo Saenz MD alprazolam (Xanax) 0.25 mg PO BEDTIME PRN aripiprazole (Abilify) 2.5 mg (1/2 x 5 mg) PO DAILY cholecalciferol (vitamin D3) 25 mcg PO DAILY 90 days dicyclomine 10 mg PO TID pantoprazole 40 mg PO DAILY vilazodone 10 mg PO DAILY vilazodone 20 mg PO DAILY Tobacco use date assessed: 09/18/24 Dental Screening Dental Screen Date: 09/18/24 HPI follow up with holter monitor/xray results HPI Details History - The patient is a 29-year-old female pr esenting with cardiac palpitations and GERD. - Diagnosed previously with gastroesopha geal reflux disease (GERD) and was prescribed pantoprazole. The patient reported limited use, taking only two doses, citing infrequent heartburn symptoms. - Notably experiences cardiac palpitatio ns, although a recent Holter monitor did not reveal any abnormalities in cardiac rhythm. Palpitations were accompanied by skipped beats and chest discomfort; however, Holter monitoring showed a regular heart rhythm during these episodes. - The electrocardiogram (EKG) performed in September was normal. - The patient denied feeling symptoms of ten associated with GERD such as heartburn, but reported a seasonal increase in alcohol use which may exacerbate symptoms, admitting to reducing consumption recently. - The patient has a known anxiety disord er, experiences episodes of intense anxiety, and occasionally uses Xanax as prescribed. Other medications include Abilify and belazetone for sleep as needed. she is established with [place] [place] Anxiety-related symptoms include short ness of breath and chest tightness. Problem List - Cardiac Palpitations - Anxiety Disorder Patient Instructions - Continue taking pantoprazole for a tri al of three weeks to see if symptoms improve, despite not feeling heartburn. - If symptoms of heartburn or discomfort persist without improvement, discontinue medication and update the provider. - Monitor alcohol intake, as reducing co nsumption may help alleviate symptoms. - Use Xanax as needed for anxiety episod es, but only when necessary. - Seek medical care if new or worsening symptoms develop. Review of Systems - General: No fever no chills - Neurological: No headaches no dizziness - Ear nose throat: No sore throat no hearing difficulty no ear pain - Cardiovascular: No syncope - Gastrointestinal: No nausea vomiting or diarrhea [facility] Medical History Major depression, recurrent Social History Housing: House Patient Tobacco Use Status: Current everyday Tobacco user Cigarettes Per Day: 2 e-Cigarette/Vaping Use: Never Used service: No Current occupational status: employed Cognitive needs: No Hearing needs: No Vision needs: No Questionnaire Thrive Questionnaire Date Thrive assessed: 09/11/24 I am a: Patient What is your living situation today?: I have a steady place to live Within the past 12 months, did the food you bought not last and you didn't have the money to get more?: Sometimes True Within the past 12 months, did you worry whether your food would run out before you got money to buy more?: Sometimes True Do you have trouble paying for medicines?: No Do you have trouble getting transportation to medical appointments?: No Do you have trouble paying your heating and electricity bill?: I choose not to answer this question Do you have trouble taking care of your child, family member or friend?: No Do you have trouble with day-to-day activities such as bathing, preparing meals, shopping, managing finances, etc.?: Yes Are you currently unemployed and looking for a job?: No Are you interested in more education?: No Please select the resources that you would like help with: None Currently or been in a relationship where the following occur: No concerns reported THRIVE Score: 2 PATRICIA-7 AMB Questionnaire PATRICIA-7 Date PATRICIA - 7 assessed: 09/18/24 Source: Developed by Drs. Randall Wright, Theresa Ponce, Rikki Alvarez and colleagues, with an educational quang from [employer]. Physical exam (Primary Care) Tobacco/Smoking Status: Tobacco use Status Tobacco use date assessed 09/18/24 11/13/24 10:35 Patient Tobacco Use Status Current everyday Tobacco 11/13/24 10:35 e-Cigarette/Vaping Use Never Used 05/30/25 10:35 Thrive Assessment: Date of Thrive Assessment Date Thrive assessed 09/11/24 11/13/24 10:35 Currently or been in a relationship where the following occur: No concerns reported Telehealth Telehealth Telehealth Platform: [employer] Location of provider rendering services: practice address Location of patient: address on file Patient Identification confirmed using: Name, : Yes Telehealth method: video (attempted) Patient verbally consented to treatment: Yes Patient verbally consented to billing insurance company: Yes Patient informed of any privacy concerns related to visit: Yes Minutes spent on Phone/Video with Pt.: 13 Coding Level of Care Code Tele Est Pt Level 3 (82163) Diagnoses Palpitation R00.2 Non-cardiac chest pain R07.89 Generalized anxiety disorder with panic attacks F41.1; F41.0 Assessment & Plan Assessment & Plan (1) Palpitation: Code(s): R00.2 - Palpitations Category: Medical (2) Non-cardiac chest pain: Code(s): R07.89 - Other chest pain Category: Medical (3) Generalized anxiety disorder with panic attacks: Code(s): F41.1 - Generalized anxiety disorder; F41.0 - Panic disorder [episodic paroxysmal anxiety] Category: Medical Plan History - The patient is a 29-year-old female presenting with cardiac palpitations and GERD. - Diagnosed previously with gastroesophageal reflux disease (GERD) and was prescribed pantoprazole. The patient reported limited use, taking only two doses, citing infrequent heartburn symptoms. - Notably experiences cardiac palpitations, although a recent Holter monitor did not reveal any abnormalities in cardiac rhythm. Palpitations were accompanied by skipped beats and chest discomfort; however, Holter monitoring showed a regular heart rhythm during these episodes. - The electrocardiogram (EKG) performed in September was normal. - The patient denied feeling symptoms often associated with GERD such as heartburn, but reported a seasonal increase in alcohol use which may exacerbate symptoms, admitting to reducing consumption recently. - The patient has a known anxiety disorder, experiences episodes of intense anxiety, and occasionally uses Xanax as prescribed. Other medications include Abilify and belazetone for sleep as needed. she is established with med prescriber [facility] - Anxiety-related symptoms include shortness of breath and chest tightness. Problem List - Cardiac Palpitations - Anxiety Disorder Patient Instructions - Continue taking pantoprazole for a trial of three weeks to see if symptoms improve, despite not feeling heartburn. - If symptoms of heartburn or discomfort persist without improvement, discontinue medication and update the provider. - Monitor alcohol intake, as reducing consumption may help alleviate symptoms. - Use Xanax as needed for anxiety episodes, but only when necessary. - Seek medical care if new or worsening symptoms develop.
== END 2024-11-13 10:37 | disposition home or self-care (01) ==
LOC: HO.HMCC 09:05
PROVIDERS: PCP Internal Medicine; Visit Provider Internal Medicine
DX: R00.2 Palpitations (principal); R07.89 Other chest pain; F41.1 Generalized anxiety disorder; F41.0 Panic disorder [episodic paroxysmal anxiety]

== ENCOUNTER → 2024-11-13 09:05 | Outpatient (BNVA) | payer OTHER, SELFPAY | PROVIDERS: PCP Internal Medicine; Visit Provider Internal Medicine | DX: Z13.89 Encounter for screening for other disorder (principal) ==

== ENCOUNTER 2024-12-24 13:21 | Outpatient (REF) | payer OTHER, SELFPAY ==
[2024-12-24 16:04] LABS: Appearance Urine Clear; Glucose Urine UA Negative (Negative); PH 8.5 (5.0-9.0); Specific Gravity - Urine <= 1.005 (1.005-1.025)
[2024-12-24 16:13] LABS: MANUAL DIFF FLAG NO
[2024-12-24 16:27] LABS: Hematocrit 41.0 % (37.0-47.0); Hemoglobin 13.6 g/dl (12.0-16.0); Imm Gran Abs Auto 0.01 X10*3/uL (0.00-0.03); Imm Gran Pct Auto 0.2 % (0.0-0.4); Lymphocytes Absolute Auto 1.8 X10*3/uL (1.2-4.9); Mean Corpuscular HGB Conc 33.2 g/dl (31.0-35.0); Mean Corpuscular Hemoglobin 32.1 pg (27.0-33.0); Mean Corpuscular Volume 96.7 fL (80.0-98.0); NRBC Abs Auto 0.000 X10*3/uL (0.0-0.012); NRBC Pct Auto 0.0 /100WBC (0.0-0.2); Platelet Count 218 X10*3/uL (160-400); Red Blood Count 4.24 X10*6/uL (4.20-5.50); White Blood Count 5.8 X10*3/uL (4.8-10.8)
[2024-12-24 16:55] LABS: Hemoglobin A1C 134.1328 umol/L; Total Hemoglobin (HGBA1C) 4064.5384 umol/L
[2024-12-24 16:57] LABS: Alanine Aminotransferase 17 U/L (0-31); Albumin Level 4.7 g/dL (3.5-5.0); Alkaline Phosphatase 67 U/L (39-117); Anion Gap 13 (12-20); Aspartate Amino Transferase 19 U/L (5-31); Blood Urea Nitrogen 8 mg/dL (9-16); Calcium 9.4 mg/dL (8.4-10.2); Carbon Dioxide 26 mmol/L (22-29); Chloride 102 mmol/L (96-108); Estimated Glomerular Filt Rate > 60; Magnesium 2.1 mg/dL (1.6-2.6); Potassium 3.9 mmol/L (3.3-5.1); Sodium 137 mmol/L (135-145); Total Protein 7.7 g/dL (6.5-8.0)
[2024-12-24 17:10] LABS: Vitamin B12 328 pg/mL (200-900)
[2024-12-27 16:29] LABS: Vitamin D 25-OH, D2 <4 ng/mL; Vitamin D 25-OH, D3 30 ng/mL; Vitamin D 25-OH, Total 30 ng/mL (30-100)
== END 2024-12-24 13:22 | disposition home or self-care (01) ==
LOC: HO.HMGCLDS 13:21
PROVIDERS: PCP Internal Medicine; Visit Provider Internal Medicine
DX: L75.0 Bromhidrosis (principal)
CPT/HCPCS: 36415; 80053; 81003; 82306; 82607; 83036; 83721; 83735; 84443; 85025

== ENCOUNTER 2025-03-23 15:13 | Outpatient (AMB) | payer OTHER, SELFPAY ==
--- OUTSIDE RECORDS SUMMARY | 2025-03-22 13:50 | XMS_ITS | Encounter Summary ---
Author Organization [facility] Address [address] [place] [address] [place] [phone] Phone Care Team Providers Care Optimization Manager Name Role Phone Pcp, Unknown Unavailable Unavailable Angela Saenz MD Unavailable Onesimo Saenz MD Primary Care Provider [phone] Reason for Visit * Reason Comments Menorrhagia Dysmenorrhea Encounter Details Date Type Department Care Team (Late st Contact Info) Description 03/22/2025 1:50 PM EDT Office Visit [facility] [address] [place] [address] [place] [address] Angela Saenz MD [address] [facility], [address] [place] [address] [email or web address] Hirsutism (Primary Dx) Social History Tobacco Use Types Packs/Day Years Used Date Smoking Tobacco: Every Day Cigarettes 0.3 2.8 Started: 2022 Smokeless Tobacco: Never Tobacco Cessation:Ready to Q uit: Not Asked; Counseling Given: Not Answered Alcohol Use Standard Drinks/Week Comments Not Currently 0 (1 standard drink = 0.6 oz pur e alcohol) socially Education Answer Date Recorded Are you interested in more education? Not on simran e 10/12/2022 Are you concerned about learning? Not on file 10/12/2022 No 10/12/2022 No 10/12/2022 Food Answer Date Recorded Within the past 6 months we worried whether our food would run out before we got money to buy more. Never True 10/14/2024 Within the past 6 months the food we bought just didn't last and we didn't have enough money to get more. Never True Residential Stability Answer Date Recor ded What is your housing situation today? I have jomar smith 10/14/2024 How many times have you moved in the past 12 sat ths? One time 10/14/2024 Paying for Meds Answer Date Recorded Do you have trouble paying for medicines? No 10/14/2024 Paying Utility Bills Answer Date Record ed Do you have trouble paying your heating or elect ricity bill? No 10/14/2024 Transportation Answer Date Recorded Has the lack of transportati on kept you from medical appointments or from getting medications? No 10/14/2024 Digital Access Answer Date Recorded No 10/14/2024 Yes 10/14/2024 Do you have reliable internet access at home? Ye s 10/14/2024 Do you have a device (e.g., phone, tablet, computer) with a working camera? Yes 10/14/2024 Intimate Partner Violence Answer Date R ecorded Are you denied basic needs s uch as food, clothing, or medical care? No 10/14/2024 In the past 12 months have y ou been in a relationship with a person who hurts, threatens, or tries to control you? No 10/14/2024 Are you denied basic needs s uch as food, clothing, or medical care? No 10/14/2024 In the past 12 months have y ou been in a relationship with a person who hurts, threatens, or tries to control you? No 10/14/2024 Comments No Sex and Gender Information Value Date Recorded Sex Assigned at Female 05/03/2020 10:54 AM EST Legal Sex Female 8:56 PM EDT Gender Identity Female 05/03/2020 10:54 AM EST Sexual Orientation Not on file documented as of this encounter Last Filed Vital Signs Vital Sign Reading Time Taken Comments Blood Pressure 118/80 03/22/2025 1:59 PM EDT Pulse - - Temperature - - Respiratory Rate - - Oxygen Saturation - - Inhaled Oxygen Concentration - - Weight 84.4 kg (186 lb) 03/22/2025 1:59 PM EDT Height - - Body Mass Index 29.57 10/14/2024 8:05 PM EDT documented in this encounter Plan of Treatment Upcoming Encounters Date Type Department Care Team (Late st Contact Info) Description 04/13/2025 11:40 AM EDT Office Visit [facility] [address] [place] [address] [place] [address] Angela Saenz MD [address] [place] [address], [address] [address] Pending Results Name Type Priority Associated Diagnoses Date /Time Sex hormone binding globulin Lab Routine Hirsutism 03/22/2025 2:48 PM EDT Scheduled Orders Name Type Priority Associated Diagnoses Orde r Schedule Sex hormone binding globulin Lab Routine Hirsutism Expected: 03/22/2025, Expires: 03/22/2026 documented as of this encounter Results * Testosterone, total (03/22/2025 2:48 PM EDT) TESTOSTERONE 32 <50 ng/dL [facility] Blood 03/22/2025 2:48 PM EDT 03/22/2025 2:51 PM EDT us Angela Saenz MD LAB BLOOD ORDERABLES Final Resul t [facility] [address] [place] [address] documented in this encounter Visit Diagnoses Diagnosis Hirsutism- Primary documented in this encounter Care Teams Optimization Manager Relationship Specialty Start Date End Date Onesimo Saenz MD [address] [facility] [place] [address] PCP - General Internal Medicine 10/14/24 Pcp, Unknown 04/02/17 Angela Saenz MD [address] [place] [address], [address] [address] Historical LMR Provider 04/04/17 documented as of this encounter Additional Source Comments The information contained in this document represents components of the legal health record. It is not the complete legal health record.[facility]
--- OUTSIDE RECORDS SUMMARY | 2025-03-22 14:40 | XMS_ITS | Encounter Summary ---
Author Organization [facility] Address [address] [place] [address] [place] [id number] Phone Care Team Providers Care Accounting Clerk Name Role Phone Pcp, Unknown Unavailable Unavailable Angela Saenz MD Unavailable Onesimo Saenz MD Primary Care Provider [phone] Encounter Details Date Type Department Care Team (Latest Contact Info) Description 03/22/2025 2:40 PM EDT - 03/22/2025 11:59 PM EDT Hospital Encounter [facility] [address] [place] [address] Angela Saenz MD [address] [place] [address], [address] [place] [address] [email or web address] Discharge Disposition: Home or Self Care Social History Tobacco Use Types Packs/Day Years Used Date Smoking Tobacco: Every Day Cigarettes 0.3 2.8 Started: 2022 Smokeless Tobacco: Never Alcohol Use Standard Drinks/Week Comments Not Currently [...] on file documented as of this encounter Medications at Time of Discharge ARIPiprazole (ABILIFY) 5 MG tablet Take 0.5 tablets by mouth every morning. 12/24/2024 pantoprazole (PROTONIX) 40 MG tablet Take 1 tablet by mouth every morning. 12/25/2024 vilazodone (VIIBRYD) 10 mg Tab PLEASE SEE ATTACHED FOR DETAILED DIRECTIONS 12/31/2024 vilazodone (VIIBRYD) 20 mg Tab MUST ADMINISTER WITH A MEAL/FOOD. TAKE 1 TABLET BY MOUTH IN ADDITION TO 10 MG TABLET 01/01/2025 documented as of this encounter Plan of Treatment Upcoming Encounters Date Type Department Care Team (Late st Contact Info) Description 04/13/2025 11:40 AM EDT Office Visit [facility] [address] [place] [address] [place] [address] Angela Saenz MD [address] [place] [address], [address] [place] [address] [email or web address] Pending Results Name Type Priority Associated Diagnoses Date /Time Sex hormone binding globulin Lab Routine Hirsutism 03/22/2025 2:48 PM EDT Scheduled Orders Name Type Priority Associated Diagnoses Orde r Schedule Sex hormone binding globulin Lab Routine Hirsutism As Needed for 1 Occurrences starting 03/22/2025 until 03/22/2025 documented as of this encounter Procedures Procedure Name Priority Date/Time Associated Diagnosis Comments TESTOSTERONE, TOTAL Routine 03/22/2025 2 :48 PM EDT Hirsutism documented in this encounter Results * Testosterone, total (03/22/2025 2:48 PM EDT) TESTOSTERONE 32 <50 ng/dL [facility] Blood 03/22/2025 2:48 PM EDT 03/22/2025 2:51 PM EDT us Angela Saenz MD LAB BLOOD ORDERABLES Final Resul t [facility] [address] [place] [address] documented in this encounter Visit Diagnoses Diagnosis Hirsutism documented in this encounter Care Teams Accounting Clerk Relationship Specialty Start Date End Date Onesimo Saenz MD [address] [place] [address] PCP - General Internal Medicine 10/14/24 Pcp, Unknown 04/02/17 Angela Saenz MD [address] [place] [address], [place] [address] [email or web address] Historical [facility]MR Provider 04/04/17 documented as of this encounter Additional Source Comments The information contained in this document represents components of the legal health record. It is not the complete legal health record.[facility]
[2025-03-23 15:16] VITALS: BP 120/76; PULSE 89; O2SAT 98; BMI 29.1
--- NOTE | 2025-03-23 15:16 | A.OFFPC_ITS ---
Vital Signs 03/23/25 15:16 Height 5 ft 7 in Weight 186 lb BMI 29.1 BP 120/76 Blood Pressure Location Lt brachial Position Sitting Pulse 89 Pulse Source Pulse Oximeter Pulse Oximetry (%) 98 Intake Visit Reasons: 6m f/u Brim Molder Required: No Accompanied by: Self / Same As Patient Allergies chlorhexidine Allergy (Severe, Verified 03/23/25 15:17) Anaphylaxis Medication List - Last Reconciled 03/23/25 by Onesimo Saenz MD alprazolam (Xanax) 0.25 mg PO BEDTIME PRN aripiprazole (Abilify) 2.5 mg (1/2 x 5 mg) PO DAILY cholecalciferol (vitamin D3) 25 mcg PO DAILY 90 days dicyclomine 10 mg PO TID pantoprazole 40 mg PO DAILY vilazodone 10 mg PO DAILY vilazodone 20 mg PO DAILY Tobacco use date assessed: 09/18/24 Dental Screening Dental Screen Date: 09/18/24 HPI 6m f/u HPI Details History The patient is a 29-year-old female presenting with follow-up concerns regarding major depressive disorder and medication management. Major Depressive Disorder: - The patient has experienced panic chelsea cks and episodes of being overwhelmed that have escalated her symptoms. - Medications include Abilify and Vilazo done, which have been used to manage symptoms. - She has developed tools for managing s ymptoms, including self-compassion techniques. - These symptoms are partially related t o her previous stressful job environment, which she has since left. - No panic disorder is reported, and she denies hallucinations. Irregular Menstrual Periods: - The patient began experiencing irregul ar menstrual cycles over the past six months, leading to consultations with her commercial installer. - She reports increased hair loss from t he scalp and appearance of black coarse hairs on the chin. - There has been an associated weight ga in noted during this period. - Hormone levels, including testosterone , were tested and found to be normal. IBS: Stable with dicyclomine as needed GERD stable with pantoprazole Medications: - Pantoprazole for gastric symptoms, as required. - Dicyclomine for gastrointestinal spasm s, as required. - Vilazodone 30 mg (20 mg + 10 mg) daily for depression. - Abilify 2.5 mg daily for depression. - Xanax as needed for anxiety. - Vitamin D supplementation. [place] of Care - Involved specialties include psychiatr y for depression management and gynecology for menstrual issues. Plan - Continue current medications, includin g Pantoprazole, as needed for gastric symptoms, and Dicyclomine as needed for gastrointestinal comfort. - Refill prescriptions for Vilazodone an d Abilify; monitor white cell count due to potential side effects of Abilify. - Encourage the continuation of self-hel p techniques for managing depressive symptoms; patient may trial stopping Abilify and observe for recurrence of symptoms. - Gynecological symptoms will be monitor ed; the patient is advised to continue consultancy with her commercial installer. - Ordered fasting blood tests for the up coming physical exam. Follow-up 3 months Review of Systems General: No fever no chills neurological: No headaches no dizziness ear nose throat: No sore throat no hearing difficulty no ear pain cardiovascular: No syncope, no chest pain, no palpitations gastrointestinal: No nausea vomiting or diarrhea endocrine: No polyuria polydipsia no heat intolerance genitourinary: No dysuria skin: No new complaints Physical Exam general: No acute distress HEENT: No acute findings neck: Supple respiratory system: Able to talk in full sentences, no audible wheeze no stridor cardiovascular: S1-S2 RRR gastrointestinal: No pain extremities: No new findings DISABILITY EXAMINER: Alert awake oriented x3 motor sensory intact skin: Normal turgor [facility] Medical History Major depression, recurrent Social History Housing: House Patient Tobacco Use Status: Current everyday Tobacco user Cigarettes Per Day: 2 e-Cigarette/Vaping Use: Never Used service: No Current occupational status: employed Cognitive needs: No Hearing needs: No Vision needs: No Questionnaire PHQ-9 Over the last 2 weeks, how often have you been bothered by any of the following problems? 1. Little interest or pleasure in doing things: not at all 2. Feeling down, depressed, or hopeless: several days 3. Trouble falling or staying asleep, or sleeping too much: not at all 4. Feeling tired or having little energy: several days 5. Poor appetite or overeating: not at all 6. Feeling bad about yourself - or that you are a failure or have let yourself or your family down: several days 7. Trouble concentrating on things, such as reading the newspaper or watching television: not at all 8. Moving or speaking so slowly that other people could have noticed. Or the opposite - being so fidgety or restless that you have been moving around a lot more than usual: several days 9. Thoughts that you would be better off or of hurting yourself in some way: several days Total score: 5 Depression Screening Interpretation: Negative Depression Screening Done: Yes 22196 - PHQ-9 Billing: Yes Source: Developed by Drs. Randall Wright, Theresa Ponce, Rikki Alvarez and colleagues, with an educational quang from [employer]. Thrive Questionnaire Date Thrive assessed: 09/11/24 I am a: Patient What is your living situation today?: I have a steady place to live Within the past 12 months, did the food you bought not last and you didn't have the money to get more?: Sometimes True Within the past 12 months, did you worry whether your food would run out before you got money to buy more?: Sometimes True Do you have trouble paying for medicines?: No Do you have trouble getting transportation to medical appointments?: No Do you have trouble paying your heating and electricity bill?: I choose not to answer this question Do you have trouble taking care of your child, family member or friend?: No Do you have trouble with day-to-day activities such as bathing, preparing meals, shopping, managing finances, etc.?: Yes Are you currently unemployed and looking for a job?: No Are you interested in more education?: No Please select the resources that you would like help with: None Currently or been in a relationship where the following occur: No concerns reported THRIVE Score: 2 AUDIT C Alcohol Use Questionnaire (AUDIT-C) 1. How often do you have a drink containing alcohol?: 4 or more times a week 2. How many drinks containing alcohol do you have on a typical day when you are drinking?: 1 or 2 3. How often do you have six or more drinks on one occasion?: Less than monthly Total Score: 5 PATRICIA-7 AMB Questionnaire PATRICIA-7 Date PATRICIA - 7 assessed: 09/18/24 Feeling nervous, anxious, or on edge: 2 = More than half the days Not being able to stop or control worryin = More than half the days Worrying too much about different things: 1 = Several days Trouble relaxin = Several days Being so restless that it is hard to sit still: 1 = Several days Becoming easily annoyed or irritable: 1 = Several days Feeling afraid as if something awful might happen: 1 = Several days Total PATRICIA-7 score (0-4 normal; 5-9 mild; 10-14 moderate; 15-21 severe): 9 Source: Developed by Drs. Randall Wright, Theresa Ponce, Rikki Alvarez and colleagues, with an educational quang from [employer]. PATRICIA-7 Assessment Billing PATRICIA-7 Assessment Tool: PATRICIA-7 Assessment 21372 Physical exam (Primary Care) Vital Signs: Last Vital Signs Pulse 89 03/23/25 15:16 BP 120/76 03/23/25 15:16 Pulse Ox 98 03/23/25 15:16 BMI result Body Mass Index 29.1 Tobacco/Smoking Status: Tobacco use Status Tobacco use date assessed 09/18/24 03/23/25 15:18 Patient Tobacco Use Status Current everyday Tobacco 03/23/25 15:18 e-Cigarette/Vaping Use Never Used 03/23/25 15:18 PHQ-9: PHQ-9 Score PHQ-9: Total score 5 03/23/25 15:22 Depression Screening Interpretation: Negative Thrive Assessment: Date of Thrive Assessment Date Thrive assessed 09/11/24 03/23/25 15:18 Currently or been in a relationship where the following occur: No concerns reported Coding Level of Care Code Est Pt Level 4 (17843) Diagnoses Generalized anxiety disorder with panic attacks F41.1; F41.0 Major depressive disorder, recurrent episode, mild with mixed features F33.0 Irritable bowel syndrome, unspecified type K58.9 Irritable bowel syndrome type: unspecified Chronic GERD K21.9 Additional Codes PHQ-9 - 53006 - PHQ-9 Billing: Yes ([id number]) PATRICIA-7 Assessment Billing - PATRICIA-7 Assessment Tool: PATRICIA-7 Assessment 13084 ([id number]) Assessment & Plan Assessment & Plan (1) Generalized anxiety disorder with panic attacks: Code(s): F41.1 - Generalized anxiety disorder; F41.0 - Panic disorder [episodic paroxysmal anxiety] Category: Medical (2) Major depressive disorder, recurrent episode, mild with mixed features: Code(s): F33.0 - Major depressive disorder, recurrent, mild Category: Medical (3) Irritable bowel syndrome: Code(s): K58.9 - Irritable bowel syndrome, unspecified Category: Medical Qualifiers: Irritable bowel syndrome type: unspecified Qualified Code(s): K58.9 - Irritable bowel syndrome, unspecified (4) Chronic GERD: Code(s): K21.9 - Gastro-esophageal reflux disease without esophagitis Category: Medical Plan History The patient is a 29-year-old female presenting with follow-up concerns regarding major depressive disorder and medication management. Major Depressive Disorder: - The patient has experienced panic attacks and episodes of being overwhelmed that have escalated her symptoms. - Medications include Abilify and Vilazodone, which have been used to manage symptoms. - She has developed tools for managing symptoms, including self-compassion techniques. - These symptoms are partially related to her previous stressful job environment, which she has since left. - No panic disorder is reported, and she denies hallucinations. Irregular Menstrual Periods: - The patient began experiencing irregular menstrual cycles over the past six months, leading to consultations with her commercial installer. - She reports increased hair loss from the scalp and appearance of black coarse hairs on the chin. - There has been an associated weight gain noted during this period. - Hormone levels, including testosterone, were tested and found to be normal. IBS: Stable with dicyclomine as needed GERD stable with pantoprazole Medications: - Pantoprazole for gastric symptoms, as required. - Dicyclomine for gastrointestinal spasms, as required. - Vilazodone 30 mg (20 mg + 10 mg) daily for depression. - Abilify 2.5 mg daily for depression. - Xanax as needed for anxiety. - Vitamin D supplementation. [place] of Care - Involved specialties include psychiatry for depression management and gynecology for menstrual issues. Plan - Continue current medications, including Pantoprazole, as needed for gastric symptoms, and Dicyclomine as needed for gastrointestinal comfort. - Refill prescriptions for Vilazodone and Abilify; monitor white cell count due to potential side effects of Abilify. - Encourage the continuation of self-help techniques for managing depressive symptoms; patient may trial stopping Abilify and observe for recurrence of symptoms. - Gynecological symptoms will be monitored; the patient is advised to continue consultancy with her commercial installer. - Ordered fasting blood tests for the upcoming physical exam. Follow-up 3 months Medications: Refilled vilazodone must administer with a meal/food; take one tablet in addition to 20mg daily for total daily dose of 30mg daily 10 mg PO DAILY 90 tabs 0RF vilazodone must administer with a meal/food; take one table in addition to a 10 mg tablet for total daily dose of 30mg 20 mg PO DAILY 90 tabs 0RF aripiprazole (Abilify) 2.5 mg (1/2 x 5 mg) PO DAILY 45 tabs 0RF
--- OUTSIDE RECORDS SUMMARY | 2025-03-23 18:27 | XMS_ITS | Encounter Summary ---
Author Organization [facility] Address [address] [place], [place] [id number] Phone Care Team Providers Care Coremaking Machine Operator Name Role Phone George Hassan MD Primary Care Provider [phone] Pcp, Unknown Unavailable Unavailable Lore Mendez FARM ASSISTANT Unavailable Viktoriya Quintero NP Unavailable Marcus Camarena MD Unavailable [phone] Angela Saenz MD Unavailable Avery Cool PA-C Unavailable [phone] Ganga Lira MD Unavailable + Sarah Randall MD Unavailable [phone] Kevin Brizuela MD Unavailable [phone] Onesimo Saenz MD Primary Care Provider Encounter Details Date Type Department Care Team (Late st Contact Info) Description 05/11/2020 Procedure Pass [address] [address] Social History Tobacco Use Types Packs/Day Years Used Date Smoking Tobacco: Never Smokeless Tobacco: Never Alcohol Use Standard Drinks/Week Comments Yes 1 (1 standard drink = 0.6 oz pur e alcohol) daily Comments No Sex and Gender Information Value Date Recorded Sex Assigned at Female 05/03/2020 10:54 AM EST Legal Sex Female 8:56 PM EDT Gender Identity Female 05/03/2020 10:54 AM EST Sexual Orientation Not on file documented as of this encounter Plan of Treatment Upcoming Encounters Date Type Department Care Team (Late st Contact Info) Description 04/13/2025 11:40 AM EDT Office Visit [facility] [address] [place] [address] [place] [address] Angela Saenz MD [address] [place] [address] [email or web address] documented as of this encounter Visit Diagnoses Not on filedocumented in this encounter Additional Health Concerns Infection Onset Date Last Indicated Resolved Time CoV-Risk 10/14/2024 10/14/2024 10/25/2024 1:57 AM EDT documented as of this encounter Care Teams Coremaking Machine Operator Relationship Specialty Start Date End Date George Hassan MD [address] [place] [address] PCP - General Internal Medicine 08/27/18 10/13/24 Onesimo Saenz MD [address] [place] [address] [place] [address] PCP - General Internal Medicine 10/14/24 Pcp, Unknown 04/02/17 Lore Mendez NP [address] [place] [address] Historical LMR Provider 04/04/17 2 Viktoriya Quintero NP [address] [place] [address] Historical LMR Provider 04/04/17 2 Marcus Camarena MD [address] [place] [address] Historical LMR Provider 04/04/17 Angela Saenz MD [address] [facility] [address] [place] [address] Historical LMR Provider 04/04/17 Avery Cool PA-C 4 [facility], [place] [address] Historical LMR Provider 04/04/17 06/24/21 Ganga Lira MD [address] [place] [address] [email or web address] Historical LMR Provider 04/04/17 06/24/21 Sarah Randall MD 4 [facility], [place] [address] Historical LMR Provider 04/04/17 Kevin Brizuela MD [address] [place] [address] Historical LMR Provider 04/04/17 2 documented as of this encounter Additional Source Comments The information contained in this document represents components of the legal health record. It is not the complete legal health record.[facility]
--- OUTSIDE RECORDS SUMMARY | 2025-03-23 18:27 | XMS_ITS | Encounter Summary ---
Author Organization [facility] Address [address] [place] [address] [place] [address] Phone Care Team Providers Care Director Craft Center Name Role Phone George Hassan MD Primary Care Provider [phone] Pcp, Unknown Unavailable Unavailable Lore Mendez COLLEGE PROFESSOR Unavailable [phone] Viktoriya Quintero NP Unavailable Marcus Camarena MD Unavailable Angela Saenz MD Unavailable Avery Cool PA-C Unavailable Ganga Lira MD Unavailable + Sarah Randall MD Unavailable Kevin Brizuela MD Unavailable [phone] Onesimo Saenz MD Primary Care Provider Encounter Details Date Type Department Care Team (Late st Contact Info) Description 05/11/2020 Ancillary Orders [facility] General Surgical Care [address] [place] [address] Jocelyn Bay MD 15 [facility], 2nd [place] [address] Focal non-cyclical breast pain Social History Tobacco Use Types Packs/Day Years [...] Office Visit [facility] [address] [place] [address] [place] [address] Angela Saenz MD [address] [place] [address], [facility] [address] [place] [address] documented as of this encounter Results * BI US BREAST LIMITED (RIGHT) (05/16/2020 9:38 AM EST) Anatomical Region Laterality Modality Breast Right, Breast Bilateral Right U ltrasound 05/16/2020 9:47 AM EST Impressions 05/16/2020 9:48 AM EST No sonographic signs of malignancy nor other explanation of pain in the right upper outer quadrant. The findings were relayed to the patient. Ultrasound BI-RADS CATEGORY 1 - NEGATIVE POS [id number] Narrative 05/16/2020 9:48 AM EST Right breast ultrasound: The patient localizes an area of discomfort in the upper outer quadrant. The entire upper outer quadrant was scanned and no cystic or solid masses or other findings which might account for pain or be suspicious for malignancy are identified. Procedure Note Avery Roy MD - 05/16/2020 Right breast ultrasound: The patient localizes an area of discomfort in the upper outer quadrant. The entire upper outer quadrant was scanned and no cystic or solid massesor other findings which might account for pain or be suspicious formalignancy are identified. IMPRESSION: No sonographic signs of malignancy nor other explanation of pain in theright upper outer quadrant. The findings were relayed to the patient. Ultrasound BI-RADS CATEGORY 1 - NEGATIVE POS [id number] us Jocelyn Bay MD IMG US BREAST Final Result documented in this encounter Visit Diagnoses Diagnosis Focal non-cyclical breast pain Focal non-cyclical breast pain documented in this encounter Additional Health Concerns Infection Onset Date Last Indicated Resolved Time CoV-Risk 10/14/2024 10/14/2024 10/25/2024 1:57 AM EDT documented as of this encounter Care Teams Director Craft Center Relationship Specialty Start Date End Date George Hassan MD [address] [place] [address] PCP - General Internal Medicine 08/27/18 10/13/24 Onesimo Saenz MD [facility] [place] [address] PCP - General Internal Medicine 10/14/24 Pcp, Unknown 04/02/17 Lore Mendez NP [address] [place] [address] Historical LMR Provider 04/04/17 2 Viktoriya Quintero NP [address] [place] [address] Historical LMR Provider 04/04/17 2 Marcus Camarena MD [address] [place] [address] Historical LMR Provider 04/04/17 Angela Saenz MD [address] [place] [address] Historical LMR Provider 04/04/17 Avery Cool PA-C 4 [facility] [place] [address] Historical LMR Provider 04/04/17 06/24/21 Ganga Lira MD [address] [place] [address] [email or web address] Historical LMR Provider 04/04/17 06/24/21 Sarah Randall MD 4 [facility], [place] [address] Historical LMR Provider 04/04/17 Kevin Brizuela MD [address] [place] [address] Historical LMR Provider 04/04/17 2 documented as of this encounter Additional Source Comments The information contained in this document represents components of the legal health record. It is not the complete legal health record.[facility]
--- OUTSIDE RECORDS SUMMARY | 2025-03-23 18:27 | XMS_ITS | Encounter Summary ---
Author Organization [facility] Address [address] [facility] [address] [place] [address] Phone Care Team Providers Care Ammunition Assembly Ii Laborer Name Role Phone Ganga Lira MD Primary Care Prov ider George Hassan MD Primary Care Provider [phone] Pcp, Unknown Unavailable Unavailable Lore Mendez OLIVE KNOCKER Unavailable Viktoriya Quintero OLIVE KNOCKER Unavailable Marcus Camarena MD Unavailable Angela Saenz MD Unavailable Avery CoolC Unavailable [phone] Ganga Lira MD Unavailable + Sarah Randall MD Unavailable Kevin Brizuela MD Unavailable [phone] Onesimo Saenz MD Primary Care Provider Encounter Details Date Type Department Care Team (Late st Contact Info) Description 07/04/2017 Transcribe Orders [facility] Specimen Processing [address] [place] [address] Rubina Lo PA-C [address] [facility], [address] [place] [address] Pharyngitis, unspecified etiology (Primary Dx) Social History Tobacco Use Types Packs/Day Years Used Date Smoking Tobacco: Never Assessed Comments Unknown Sex and Gender Information Value Date Recorded Sex Assigned at Female 05/03/2020 10:54 AM EST Legal Sex Female 8:56 PM EDT Gender Identity Female 05/03/2020 10:54 AM EST Sexual Orientation Not on file documented as of this encounter Plan of Treatment Upcoming Encounters Date Type Department Care Team (Late st Contact Info) Description 04/13/2025 11:40 AM EDT Office Visit [facility] [address] [place] [address] [place] [address] Angela Saenz MD [address] [place] [address], [address] [place] [address] [email or web address] documented as of this encounter Results * (ABNORMAL) Throat culture (07/04/2017 10:15 AM EST) Specimen Source/ Description THROAT THROAT [facility] Special Requests None [facility] Culture/Test Few BETA HEMOLYTIC STREP (NON-GROUP A)(A) [facility] Culture/Test Moderate MIXED ORGANISMS RESEMBLING OROPHARYNGEAL MARIPOSA(A) [facility] Report Status 07/06/2017 FINAL [facility] Other (Throat) 07/04/2017 10 :15 AM EST 07/04/2017 2:09 PM EST us Rubina Lo PA-C MICROBIOLOGY - GENERAL ORDER BETTE Final Result [facility] [address] [place] [address] documented in this encounter Visit Diagnoses Diagnosis Pharyngitis, unspecified etiology- Primary documented in this encounter Additional Health Concerns Infection Onset Date Last Indicated Resolved Time CoV-Risk 10/14/2024 10/14/2024 10/25/2024 1:57 AM EDT documented as of this encounter Care Teams Ammunition Assembly Ii Laborer Relationship Specialty Start Date End Date Ganga Lira MD [email or web address] PCP - General 04/02/17 08/26/18 George Hassan MD [address] [place] [address] PCP - General Internal Medicine 08/27/18 10/13/24 Onesimo Saenz MD [facility] [place] [address] PCP - General Internal Medicine 10/14/24 Pcp, Unknown 04/02/17 Lore Mendez NP [address] [place] [address] Historical LMR Provider 04/04/17 2 Viktoriya Quintero NP [address] [place] [address] Historical LMR Provider 04/04/17 2 Marcus Camarena MD [address] [place] [address] Historical LMR Provider 04/04/17 Angela Saenz MD [address] [place] [address] Historical LMR Provider 04/04/17 Avery Cool PA-C [address] [place] [address] [facility] [place] [address] Historical LMR Provider 04/04/17 06/24/21 Ganga Lira MD [address] [place] [address] [email or web address] Historical LMR Provider 04/04/17 06/24/21 Sarah Randall MD [address] [place] [address] Orthopedics [facility] Sports Medicine, [facility] [place] [address] Historical LMR Provider 04/04/17 Kevin Brizuela MD [address] [place] [address] Historical LMR Provider 04/04/17 2 documented as of this encounter Additional Source Comments The information contained in this document represents components of the legal health record. It is not the complete legal health record.[facility]
--- OUTSIDE RECORDS SUMMARY | 2025-03-23 18:27 | XMS_ITS | Clinical Summary ---
Author Organization [facility] Address [address] [place] [address] Phone Care Team Providers Care Bessemer Bottom Maker Name Role Phone Pcp, Unknown Unavailable Unavailable Angela Saenz MD Unavailable Onesimo Saenz MD Primary Care Provider [phone] Allergies Active Allergy Reactions Criticality Noted Date Comments Chlorhexidine Gluconate Anaphylaxis High 11/02/2019 Medications ARIPiprazole (ABILIFY) 5 MG tablet Take 0.5 tablets by mouth every morning. 5 Active pantoprazole (PROTONIX) 40 MG tablet Take 1 tablet by mouth every morning. 5 Active vilazodone (VIIBRYD) 10 mg Tab PLEASE SEE ATTACHED FOR DETAILED DIRECTIONS 5 Active vilazodone (VIIBRYD) 20 mg Tab MUST ADMINISTER WITH A MEAL/FOOD. TAKE 1 TABLET BY MOUTH IN ADDITION TO 10 MG TABLET 5 Active Active Problems Problem Noted Date Diagnosed Date Breast tenderness in female 11/13/2019 Assessment & Plan (05/03/2020 1:43 PM EST): Exam benign. Refer to Breast surgeon for exam as she perceives a difference on her BSE Try evening primose oild as well for the pain Assessment & Plan (11/13/2019 3:17 PM EDT): On right, mostly provoked and less at rest; seems to be better last 24 hours. Exam benign in office If persists after next menses, call, refer to surgeon for repeat exam Encounters Date Type Department Care Team Description 03/22/2025 2:40 PM EDT - 03/22/2025 11:59 PM EDT Hospital Encounter [facility] [address] [place] [address] Angela Saenz MD Discharge Disposition: Home or Self Care 03/22/2025 1:50 PM EDT Office Visit [facility] [address] [place] [address] [place] [address] Angela Saenz MD Hirsutism (Primary Dx) 03/15/2025 Telephone [facility] [address] [place] [address] Angela Saenz MD Appointment 02/03/2025 Telephone [facility] [address] [place] [address] Angela Saenz MD from Last 3 Months Family History Medical History Relation Comments No Known Problems Brother 1 No Known Problems Brother 2 No Known Problems Father No Known Problems Mother Relation Status Comments Brother 1 Alive Brother 2 Alive Father Alive Mother Alive Social History Tobacco Use Types Packs/Day Years [...] your housing situation today? I have jomar sing 10/14/2024 How many times have you moved [...] AM EST Sexual Orientation Not on file Last Filed Vital Signs Vital Sign Reading Time Taken Comments Blood Pressure 118/80 03/22/2025 1:59 PM EDT Pulse 76 10/14/2024 9:31 PM EDT Temperature 36.6 C (97.8 F) 10/14/2024 9:31 PM EDT Respiratory Rate 20 10/14/2024 9:31 PM EDT Oxygen Saturation 100% 10/14/2024 9:31 PM EDT Inhaled Oxygen Concentration - - Weight 84.4 kg (186 lb) 03/22/2025 1:59 PM EDT Height 168.9 cm (5' 6.5 ) 10/14/2024 8:05 PM EDT Body Mass Index 29.57 10/14/2024 8:05 PM EDT Plan of Treatment Upcoming Encounters Date Type Department Care Team (Late st Contact Info) Description 04/13/2025 11:40 AM EDT Office Visit [facility] [address] [place] [address] Dr Yang, [place] [address] Angela Saenz MD [address] [place] [address], [address] [place] [address] [email or web address] Health Maintenance Due Date Last Done Comments DEPRESSION SCREENING 2005 HEPATITIS C SCREENING 2011 HIV ONE-TIME SCREENING (18-6 5 YEARS) 2011 PNEUMOCOCCAL VACCINES (0-49 years) (1 of 2 - PCV) 2012 PAP SMEAR 07/02/2021 07/02/2018, 07/02/2018, 05/09/2015 INFLUENZA VACCINE (#1) 2025 05/05/2020 COVID-19 VACCINE (2 - 2024-2 6 season) 2025 10/05/2020 SMOKING Hx and SMOKELESS TOBACCO SCREENING 03/22/2026 03/22/2025 Adult Td,Tdap Booster 09/06/2030 09/06/2020 HEPATITIS A VACCINES Aged Out No long er eligible based on patient's age to complete this topic HIB VACCINES Aged Out No longer eligi ble based on patient's age to complete this topic MENINGOCOCCAL VACCINES (ACWY) Aged Out No longer eligible based on patient's age to complete this topic MENINGOCOCCAL VACCINES (B) Aged Out N o longer eligible based on patient's age to complete this topic Medical Devices Not on file Procedures Procedure Name Priority Date/Time Associated Diagnosis Comments TESTOSTERONE, TOTAL Routine 03/22/2025 2 :48 PM EDT Hirsutism PAP TEST Routine 07/02/2018 12:00 AM EST from Last 3 Months or Most Recently Relevant to Health Maintenance Results * Testosterone, total (03/22/2025 2:48 PM EDT) TESTOSTERONE 32 <50 ng/dL [facility] Blood 03/22/2025 2:48 PM EDT 03/22/2025 2:51 PM EDT us Angela Saenz MD LAB BLOOD ORDERABLES Final Resul t Performing Organization Address City/[facility] Co de Phone Number [address] [address] * Pap Smear (07/02/2018 12:00 AM EST) 07/02/2018 07/03/2018 1:0 2 PM EST Narrative SEE NARRATIVE - 07/09/2018 5:35 PM EST [address] [address] Bowl Sander: Caren Harrison MD KILN DRAWER Cytology Report FINAL DIAGNOSIS A. PAP SMEAR (SUREPATH) CE: SPECIMEN ADEQUACY: Satisfactory for evaluation; transformation zone present. INTERPRETATION: NEGATIVE FOR INTRAEPITHELIAL LESION OR MALIGNANCY. Electronically Signed Out By: Jocelyn GALLOWAY(ASCP) The Pap test is a screening test primarily for squamous cancers and precursors and has associated false-negative and false-positive results. New technologies such as liquid-based preparations may decrease but will not eliminate all false-negative results. Regular sampling and follow-up of unexplained clinical signs and symptoms are recommended to minimize false negative results. CLINICAL HISTORY Date of Last Menstrual Period: N/A Other Clinical Conditions: Screening Pap SPECIMEN SOURCE A: PAP SMEAR (SUREPATH) CE Patient Name: FAVIOLA ELY : 1995 (Age: 23) Sex: F Institution[facility] Location: [facility] Date of Collection: 07/02/2018 Date of Reported: 07/09/2018 17:35 Results to: Angela Reyes us Angela Saenz MD CYTOLOGY ORDERABLES Final Result Performing Organization Address City/[facility] Co de Phone Number SEE NARRATIVE from Last 3 Months or Most Recently Relevant to Health Maintenance Insurance ACO ACO ACO Care Teams Bessemer Bottom Maker Relationship Specialty Start Date End Date Onesimo Saenz MD [address] [place] [address] [place] [address] PCP - General Internal Medicine 4/30/25 Pcp, Unknown 04/02/17 Angela Saenz MD [address] [place] [address], [facility] [address] [place] [address] [email or web address] Historical LMR Provider 04/04/17 Additional Source Comments The information contained in this document represents components of the legal health record. It is not the complete legal health record.[facility]
== END 2025-03-23 15:38 | disposition home or self-care (01) ==
LOC: HO.HMCC 15:14
PROVIDERS: PCP Internal Medicine; Visit Provider Internal Medicine
DX: F41.1 Generalized anxiety disorder (principal); F41.0 Panic disorder [episodic paroxysmal anxiety]; F33.0 Major depressive disorder, recurrent, mild; K58.9 Irritable bowel syndrome, unspecified; K21.9 Gastro-esophageal reflux disease without esophagitis

== ENCOUNTER → 2025-03-23 15:13 | Outpatient (BNVA) | payer OTHER, SELFPAY | PROVIDERS: PCP Internal Medicine; Visit Provider Internal Medicine | DX: K21.9 Gastro-esophageal reflux disease without esophagitis (principal); N92.6 Irregular menstruation, unspecified; K58.9 Irritable bowel syndrome, unspecified; F41.1 Generalized anxiety disorder; F41.0 Panic disorder [episodic paroxysmal anxiety]; F33.0 Major depressive disorder, recurrent, mild; Z79.899 Other long term (current) drug therapy | CPT/HCPCS: 96127; 99212 ==

== ENCOUNTER 2025-06-15 11:11 | Outpatient (AMB) | payer OTHER, SELFPAY ==
[2025-06-15 11:18] VITALS: BP 118/76; PULSE 87; RESP 18; TEMP 36.6; O2SAT 100; BMI 30.4
--- NOTE | 2025-06-15 11:18 | A.OFFPC_ITS ---
Vital Signs 06/15/25 11:18 Height 5 ft 7 in Weight 194 lb BMI 30.4 BP 118/76 Blood Pressure Location Lt brachial Position Sitting Respiration 18 Pulse 87 Pulse Source Pulse Oximeter Temp 98 F Temp Source Oral Pulse Oximetry (%) 100 Oxygen Delivery Method Room Air Intake Visit Reasons: PE Allergies chlorhexidine Allergy (Severe, Verified 06/15/25 11:21) Anaphylaxis Medication List - Last Reconciled 06/15/25 by Onesimo Saenz MD alprazolam (Xanax) 0.25 mg PO BEDTIME PRN aripiprazole (Abilify) 2.5 mg (1/2 x 5 mg) PO DAILY cholecalciferol (vitamin D3) 25 mcg PO DAILY 90 days vilazodone 20 mg PO DAILY Tobacco use date assessed: 06/15/25 Dental Screening Dental Screen Date: 09/18/24 Did you have a dental visit in the last 12 months?: No Did you have a dental problem in the last 6 months where you did not have access to dental care?: No Was dental information given to patient?: Patient has dentist HPI HPI Comments History of Present Illness Details History of Present Illness The patient is a 29 year old female presenting for a physical exam. Psychiatric Conditions: - The patient has a history of major dep ression, generalized anxiety disorder, and panic disorder. - She currently takes vilazodone 30 mg a nd alprazolam as needed. - She previously took aripiprazole 2.5 m g for triggering situations that caused meltdowns, possibly related to being on the autism spectrum, but she stopped taking it as she did not feel it made a difference and the trigger was eliminat ed. - She reports feeling stable on her curr ent medication regimen and states her sleep is alright. - She is no longer followed by a psychia trist. - The patient has previously taken panto prazole for stomach issues but has stopped it and denies any current stomach problems. Medical History: - Major depression - Generalized anxiety disorder - Panic disorder - History of stomach problems, previousl y treated with pantoprazole. Social History: - Sleep: Reports her sleep is all right . - Stressors: Previously experienced trig gering situations leading to meltdowns while working with her father, a situation that has since been eliminated. Health Maintenance - The patient had an ASSOCIATE PRODUCT MANAGER visit with Connor Saenz within the last month. [place] [facility] - The patient saw her ASSOCIATE PRODUCT MANAGER, Dr. Angela macias at [facility], within the last month. - She previously saw a psychiatrist but is no longer under psychiatric care. Medications - Vilazodone 30 mg daily for psychiatric conditions. - Alprazolam as needed for psychiatric c onditions. - Discontinued pantoprazole 40 mg, previ ously used for stomach issues. - Discontinued aripiprazole 2.5 mg. PFSH Medical History Major depression, recurrent Social History Housing: House Patient Tobacco Use Status: Current everyday Tobacco user Cigarettes Per Day: 2 e-Cigarette/Vaping Use: Never Used service: No Current occupational status: employed Cognitive needs: No Hearing needs: No Vision needs: No Questionnaire Thrive Questionnaire Date Thrive assessed: 09/11/24 I am a: Patient What is your living situation today?: I have a steady place to live Within the past 12 months, did the food you bought not last and you didn't have the money to get more?: Sometimes True Within the past 12 months, did you worry whether your food would run out before you got money to buy more?: Sometimes True Do you have trouble paying for medicines?: No Do you have trouble getting transportation to medical appointments?: No Do you have trouble paying your heating and electricity bill?: I choose not to answer this question Do you have trouble taking care of your child, family member or friend?: No Do you have trouble with day-to-day activities such as bathing, preparing meals, shopping, managing finances, etc.?: Yes Are you currently unemployed and looking for a job?: No Are you interested in more education?: No Currently or been in a relationship where the following occur: No concerns reported THRIVE Score: 2 AUDIT C Alcohol Use Questionnaire (AUDIT-C) 1. How often do you have a drink containing alcohol?: 2-3 times a week 2. How many drinks containing alcohol do you have on a typical day when you are drinking?: 1 or 2 3. How often do you have six or more drinks on one occasion?: Less than monthly Total Score: 4 Score Reviewed/Action Taken: Yes PATRICIA-7 AMB Questionnaire PATRICIA-7 Date PATRICIA - 7 assessed: 09/18/24 Source: Developed by Drs. Randall Wright, Theresa Ponce, Rikki Alvarez and colleagues, with an educational quang from [employer]. Review of Systems Narrative Review of Systems - Psychiatric: Reports history of major depression, generalized anxiety disorder, and panic disorder. Takes vilazodone and alprazolam. Denies hallucinations. - Constitutional: Reports sleep is all right. - Gastrointestinal: Denies stomach problems. Physical exam (Primary Care) Vital Signs: Last Vital Signs Temp 98 F 06/15/25 11:18 Pulse 87 06/15/25 11:18 Resp 18 06/15/25 11:18 BP 118/76 06/15/25 11:18 Pulse Ox 100 06/15/25 11:18 Oxygen Delivery Method Room Air 06/15/25 11:18 BMI result Body Mass Index 30.4 Tobacco/Smoking Status: Tobacco use Status Tobacco use date assessed 06/15/25 06/15/25 11:21 Patient Tobacco Use Status Current everyday Tobacco 06/15/25 11:21 e-Cigarette/Vaping Use Never Used 06/15/25 11:21 Thrive Assessment: Date of Thrive Assessment Date Thrive assessed 09/11/24 06/15/25 11:21 Currently or been in a relationship where the following occur: No concerns reported Narrative Diagnostic results Physical Exam General: Cooperative, healthy appearing, comfortable, no acute distress Orientation: Patient oriented x3 Head: Normal to inspection Ears: Within normal limit visually Nose: Normal external nose present Face and sinus: Normal facial exam Eyes: Appearance normal, extraocular movement intact pupils reactive Neck: Normal visual inspection and supple Respiratory: Normal respiratory effort and able to speak in complete sentences. Skin: Turgor normal, no acute findings Neuro: Patient oriented x3, motor intact Extremities: Normal to inspection . Coding Level of Care Code Est Pt Level 3 (57258) Est Pt Prev Care 18-39y(27110) Diagnoses Encounter for general adult medical examination with abnormal findings Z00.01 Generalized anxiety disorder with panic attacks F41.1; F41.0 Psychiatric illness F99 Assessment & Plan Assessment & Plan (1) Encounter for general adult medical examination with abnormal findings: Code(s): Z00.01 - Encounter for general adult medical examination with abnormal findings Category: Medical (2) Generalized anxiety disorder with panic attacks: Code(s): F41.1 - Generalized anxiety disorder; F41.0 - Panic disorder [episodic paroxysmal anxiety] Category: Medical (3) Psychiatric illness: Code(s): F99 - Mental disorder, not otherwise specified Category: Medical Plan Before I had a chance to talk to patient further and ask more questions, she started having melt down / panic attach, opened the door and ran out of the room, staff went after her to provide assistance including the behaviour health coordinator , but patient already left the building I have discussed with our Behaviour health coordinator, this patient need to be established with Psych, they should manage her meds
--- OUTSIDE RECORDS SUMMARY | 2025-06-15 15:12 | XMS_ITS | Encounter Summary ---
Author Organization [facility] Address [address] [place] [address] [place] [address] Phone Care Team Providers Care Grain Handler Name Role Phone George Hassan MD Primary Care Provider [phone] Pcp, Unknown Unavailable Unavailable Lore Mendez CARROT BUNCHER Unavailable Viktoriya Quintero NP Unavailable Marcus Camarena MD Unavailable nAgela Saenz MD Unavailable Avery Cool PA-C Unavailable [phone] Ganga Lira MD Unavailable + Sarah Randall MD Unavailable Kevin Brizuela MD Unavailable [phone] Onesimo Saenz MD Primary Care Provider Encounter Details Date Type Department Care Team (Late st Contact Info) Description 05/11/2020 Ancillary Orders [facility] [address] [place] [address] Jocelyn Bay MD [address] [facility], 2nd [place] [address] Focal non-cyclical breast pain Social History Tobacco [...] as of this encounter Plan of Treatment Not on file documented as of this encounter Results * [...] documented as of this encounter Care Teams Grain Handler Relationship Specialty Start Date End Date George Hassan MD [address] [place] [address] PCP - General Internal Medicine 08/27/18 10/13/24 Onesimo Saenz MD [employer] [facility] [place] [address] PCP - General Internal Medicine 10/14/24 Pcp, Unknown 04/02/17 Lore Mendez NP [address] [place] [address] Historical LMR Provider 04/04/17 2 Viktoriya Quintero NP [address] [place] [address] Historical LMR Provider 04/04/17 2 Marcus Camarena MD [address] [place] [address] Historical LMR Provider 04/04/17 Angela Saenz MD [address] [place] [address] Historical LMR Provider 04/04/17 Avery Cool PA-C [address] [place] [address] [facility] [place] [address] Historical LMR Provider 04/04/17 06/24/21 Ganga Lira MD [address] [place] [address] [email or web address] Historical LMR Provider 04/04/17 06/24/21 Sarah Randall MD [address] [facility] [place] [address] Historical LMR Provider 04/04/17 Kevin Brizuela MD [address] [place] [address] Historical LMR Provider 04/04/17 2 documented as of this encounter Additional Source Comments The information contained in this document represents components of the legal health record. It is not the complete legal health record.[facility]
--- OUTSIDE RECORDS SUMMARY | 2025-06-15 15:13 | XMS_ITS | Clinical Summary ---
Author Organization [facility] Address [facility] [employer] [facility] [address] [place] [address] Phone Care Team Providers Care Operating Systems Programmer Name Role Phone Pcp, Unknown Unavailable Unavailable Angela Saenz MD Unavailable Onesimo Saenz MD Primary Care Provider [phone] Allergies Active Allergy Reactions Criticality Noted Date Comments Chlorhexidine Gluconate Anaphylaxis High 11/02/2019 Medications pantoprazole (PROTONIX) 40 MG tablet Take 1 tablet by mouth every morning. 5 Active vilazodone (VIIBRYD) 20 mg Tab MUST ADMINISTER WITH A MEAL/FOOD. TAKE 1 TABLET BY MOUTH IN ADDITION TO 10 MG TABLET 5 Active Active Problems Problem Noted Date Diagnosed Date Irregular menstrual cycle 03/24/2025 Overview (03/24/2025): Stopped OCP a few years ago- now cycle ranges from 3-5 weeks, has dysmenorrhea and heavy flow Feels better off the OCP Assessment & Plan (05/03/2025 4:22 PM EST): Last menses was better; taking inositol for just a few months, Assessment & Plan (03/24/2025 8:57 AM EDT): Discussed possible causes, and Tx options as she prefers to avoid OCP- a LNG IUD is effective at reducing pain and heavy bleeding, much lower concentrations of the progestin in bloodstream, etc Reviewed the procedure, R&B, etc- suggest Kyleena for minimal progestin exposure Implant, Depo P other options, but less desirable given preference for no systemic hormones Hirsutism 03/24/2025 Overview (05/03/2025): Iveth on chin; off OCP x a few years Normal T and SHBG Assessment & Plan (03/24/2025 8:57 AM EDT): Blood tests ordered, can opt for spiroolactone Breast tenderness in female 11/13/2019 Assessment & [...] Encounters Date Type Department Care Team Description 05/03/2025 3:50 PM EST Office Visit [facility] Obstetrics and Gynecology [address] [place] [address] Angela Saenz MD Encounter for gynecological examination without abnormal finding (Primary Dx); Screening for cervical cancer; Irregular menstrual cycle; Hirsutism 03/22/2025 2:40 PM EDT - 03/22/2025 11:59 PM EDT Hospital Encounter [facility] [address] [place] [address] Angela Saenz MD Discharge Disposition: Home or Self Care 03/22/2025 1:50 PM EDT Office Visit [facility] Ob[facility]etrics and Gynecology [address] [place] [address] Angela Saenz MD Irregular menstrual cycle (Primary Dx); Hirsutism; Dysmenorrhea from Last 3 Months Family History Medical History Relation Comments No Known Problems Brother 1 No Known Problems Brother 2 No Known Problems Father No Known Problems Mother Relation Status Comments Brother 1 Alive Brother 2 Alive Father Alive Mother Alive Social History Tobacco Use Types Packs/Day Years Used Date Smoking Tobacco: Every Day Cigarettes 0.3 3 Started: 2022 Smokeless Tobacco: Never Tobacco Cessation:Ready [...] Sign Reading Time Taken Comments Blood Pressure 110/64 05/03/2025 4:05 PM EST Pulse 76 10/14/2024 9:31 PM EDT Temperature 36.6 C (97.8 F) 10/14/2024 9:31 PM EDT Respiratory Rate 20 10/14/2024 9:31 PM EDT Oxygen Saturation 100% 10/14/2024 9:31 PM EDT Inhaled Oxygen Concentration - - Weight 87.5 kg (193 lb) 05/03/2025 4:05 PM EST Height 168.9 cm (5' 6.5 ) 05/03/2025 4:05 PM EST Body Mass Index 30.69 05/03/2025 4:05 PM EST Plan of Treatment Health Maintenance Due Date Last Done Comments DEPRESSION SCREENING 2005 HEPATITIS C SCREENING 2011 HIV ONE-TIME SCREENING (18-65 YEARS) 2011 PNEUMOCOCCAL VACCINES (0-49 years) (1 of 2 - PCV) 2012 INFLUENZA VACCINE (#1) 2025 05/05/2020 COVID-19 VACCINE (2 - season) 2025 10/05/2020 SMOKING Hx and SMOKELESS TOBACCO SCREENING 05/03/2026 05/03/2025 PAP SMEAR 05/03/2030 05/03/2025, 06/17, 07/02/2018, Additional history exists Adult Td,Tdap Booster 09/06/2030 09/06/2020 HEPATITIS A [...] Procedure Name Priority Date/Time Associated Diagnosis Comments PAP TEST Routine 05/03/2025 4:24 PM EST Screening for cervical cancer CERVICAL CANCER SCREENING Routine 05/03/2025 4:24 PM EST Screening for cervical cancer GENETIC PROBE AMPLIFICATION FOR HUMAN PAPILLOMAVIRUS Routine 05/03/2025 4:24 PM EST Screening for cervical cancer TESTOSTERONE, TOTAL Routine 03/22/2025 2 :48 PM EDT Hirsutism SEX HORMONE BINDING GLOBULIN Routine 03/22/2025 2:48 PM EDT Hirsutism from Last 3 Months Results * Human Papillomavirus (HPV), Nucleic Acid Amplification (05/03/2025 4:24 PM EST) HPV 16 Negative 05/07/2025 2:00 PM EST [facility] HPV 18 Negative 05/07/2025 2:00 PM EST [facility] HPV 45 Negative 05/07/2025 2:00 PM EST [facility] HPV 31 Negative 05/07/2025 2:00 PM EST [facility] HPV 51 Negative 05/07/2025 2:00 PM EST [facility] HPV 52 Negative 05/07/2025 2:00 PM EST [facility] HPV 33, 58 Negative 05/07/2025 2:00 PM [facility] HPV 35, 39, 68 Negative 05/07/2025 2:00 PM [facility] HPV 56, 59, 66 Negative 05/07/2025 2:00 PM EST [facility] HPV Disclaimer: Performed by real-time polymerase chain reaction (PCR) at [facility], [address] [place] [address], [place] using the FDA-approved [employer] Onclarity HPV Assay with extended genotyping. Uses of the assay in scenarios other than those approved by the FDA should be considered off-label use. The accuracy and precision of this test for all other off-label specimen sources has been verified in the Cytopathology Laboratory of the [facility] and has not been cleared or approved by the U.S. Food and Drug Administration. Clinical correlation is advised. The assay assesses the E6/E7 DNA target and utilizes human beta globin as an internal control. Cytology and HPV testing are screening assays and should not be used as the sole means of detecting cancer. False-positives and false-negatives can occur. 05/07/2025 2:00 PM [facility] Pap Collection (Cervix) 05/03/2025 4:24 PM EST 05/04/2025 8:34 AM EST us Angela Saenz MD LAB GENERAL ORDERABLES Final Res ult [facility] [address] [place] [address] * Pap Test (05/03/2025 4:24 PM EST) Final Diagnosis A. PAP TEST: CERVIX SPECIMEN ADEQUACY: Satisfactory for evaluation; transformation zone present. INTERPRETATION: Negative For Intraepithelial Lesion or Malignancy. HPV RESULTS: HPV 16: Negative HPV 18: Negative HPV 45: Negative HPV 31: Negative HPV 51: Negative HPV 52: Negative HPV 33, 58: Negative HPV 35, 39, 68: Negative HPV 56, 59, 66: Negative 05/07/2025 2:00 PM [facility] at 1400 EST Pap Methodology This specimen was successfully pre-screened using the [employer] ThinPrep Imaging System. Selected randolph from the publicity expert were reviewed by a Lounge Car Attendant. If indicated, this case was reviewed by a Pathologist. The Pap test is a screening test primarily for detecting cervical Squamous Cell Carcinoma and its precursors. The test has an inherent but low probability of error, with liquid-based methods having a reported false negative rate of about 2%. Regular sampling and follow-up of unexplained clinical signs and symptoms are recommended to minimize false negative results. 05/07/2025 2:00 PM [facility] Clinical History ICD-10: Screening for cervical cancer 05/07/2025 2:00 PM [facility] LMP? N/A 05/07/2025 2:00 PM [facility] Gross Description A. PAP TEST: CERVIX: 1 Preservcyt vial received labeled with two patient identifiers. 1 ThinPrep slide prepared. 05/07/2025 2:00 PM [facility] A. Adequacy Satisfactory for evaluation; transformation zone present. 05/07/2025 2:00 PM EST [facility] A. Interpretation Negative For Intraepithelial Lesion or Malignancy. 05/07/2025 2:00 PM EST [facility] Pap Collection (Cervix) 05/03/2025 4:24 PM EST 05/03/2025 4:24 PM EST Angela Saenz MD LAB CYTOLOGY ORDERABLES Final Re sult Performing Organization Address City/[facility]/ZIP Co de Phone Number [address] [address] * Sex hormone binding globulin (03/22/2025 2:48 PM EDT) SEX HORMONE BIND GLOB 37.0 18.2 - 135.5 nmol/L [facility] Blood 03/22/2025 2:48 PM EDT 03/22/2025 2:51 PM EDT us Angela Saenz MD LAB BLOOD ORDERABLES Final Resul t Performing Organization Address [facility] Co de Phone Number [facility] LAB MED/[address] [place] [address] * Testosterone, total (03/22/2025 2:48 PM EDT) TESTOSTERONE 32 <50 ng/dL [facility] Blood 03/22/2025 2:48 PM EDT 03/22/2025 2:51 PM EDT Angela Saenz MD LAB BLOOD BKR ORDERABLES Final R esult Performing Organization Address [facility] Co de Phone Number [address] [address] from Last 3 Months Insurance [employer] [place] [address] [place] [address] ACO [facility] ACO Care Teams Operating Systems Programmer Relationship Specialty Start Date End Date Onesimo Saenz MD [facility] [address] PCP - General Internal Medicine 10/14/24 Pcp, Unknown 04/02/17 Angela Saenz MD [address] [place] [address], [facility] [address] [place] [address] [email or web address] Historical LMR Provider 04/04/17 Additional Source Comments The information contained in this document represents components of the legal health record. It is not the complete legal health record.[facility]
--- OUTSIDE RECORDS SUMMARY | 2025-06-15 15:13 | XMS_ITS | Encounter Summary ---
Author Organization [facility] Address [address] [facility] [address] [place] [address] Phone Care Team Providers Care Wash Rack Operator Name Role Phone Ganga Lira MD Primary Care Prov ider George Hassan MD Primary Care Provider [phone] Pcp, Unknown Unavailable Unavailable Lore Mendez CANDY SUPERVISOR Unavailable Viktoriya Quintero CANDY SUPERVISOR Unavailable Marcus Camarena MD Unavailable Angela Saenz MD Unavailable Avery CoolC Unavailable [phone] Ganga Lira MD Unavailable + Sarah Randall MD Unavailable Kevin Brizuela MD Unavailable [phone] Onesimo Saenz MD Primary Care Provider [phone] Encounter Details Date Type Department Care Team (Late st Contact Info) Description 07/04/2017 Transcribe Orders [facility] Specimen Processing [address] [place] [address] Rubina Lo PA-C [address] [facility], [address] [place] [address] Pharyngitis, unspecified etiology (Primary Dx) Social History [...] AM EST) Specimen Source/ Description THROAT THROAT [facility] Special Requests None [facility] Culture/Test Few BETA HEMOLYTIC STREP (NON-GROUP A)(A) [facility] Culture/Test Moderate MIXED ORGANISMS RESEMBLING OROPHARYNGEAL MARIPOSA(A) [facility] Report Status 07/06/2017 FINAL [facility] Other (Throat) 07/04/2017 10 :15 AM EST 07/04/2017 2:09 PM EST us Rubina Lo PA-C LAB MICROBIOLOGY CULTURE ORD ERABLES Final Result Performing Organization Address City/State/[facility] Co de Phone Number [facility] [address] [place] [address] documented in this encounter Visit Diagnoses Diagnosis Pharyngitis, unspecified etiology- Primary documented in this encounter Additional Health Concerns Infection Onset Date Last Indicated Resolved Time CoV-Risk 10/14/2024 10/14/2024 10/25/2024 1:57 AM EDT documented as of this encounter Care Teams Wash Rack Operator Relationship Specialty Start Date End Date Ganga Lira MD [email or web address] PCP - General 04/02/17 08/26/18 George Hassan MD [address] [place] [address] PCP - General Internal Medicine 08/27/18 10/13/24 Onesimo Saenz MD [address] [facility] [place] [address] PCP - General Internal Medicine 10/14/24 Pcp, Unknown 04/02/17 Lore Mendez NP [address] [place] [address] [address] [place] [address] Historical LMR Provider 04/04/17 2 Viktoriya Quintero NP [address] [place] [address] Historical LMR Provider 04/04/17 2 Marcus Camarena MD [address] [place] [address] Historical LMR Provider 04/04/17 Angela Saenz MD [address] [place] [address] [address] [place] [address] Historical LMR Provider 04/04/17 Avery Cool PA-C [address] [place] [address] [facility] [place] [address] Historical LMR Provider 04/04/17 06/24/21 Ganga Lira MD [address] [place] [address] [email or web address] Historical LMR Provider 04/04/17 06/24/21 Sarah Randall MD [address] [place] [address] [facility] [place] [address] [email or web address] Historical LMR Provider 04/04/17 Kevin Brizuela MD [address] [place] [address] Historical LMR Provider 04/04/17 2 documented as of this encounter Additional Source Comments The information contained in this document represents components of the legal health record. It is not the complete legal health record.[facility]
--- OUTSIDE RECORDS SUMMARY | 2025-06-15 15:13 | XMS_ITS | Encounter Summary ---
Author Organization [facility] Address [address] [place] [address] Phone Care Team Providers Care Transport Tank Technician Name Role Phone George Hassan MD Primary Care Provider [phone] Pcp, Unknown Unavailable Unavailable Lore Mendez FORENSIC SOCIAL WORKER Unavailable [phone] Viktoriya Quintero NP Unavailable Marcus Camarena MD Unavailable Angela Saenz MD Unavailable Avery Cool PA-C Unavailable [phone] Ganga Lira MD Unavailable + Sarah Randall MD Unavailable [phone] Kevin Brizuela MD Unavailable [phone] Onesimo Saenz MD Primary Care Provider Encounter Details Date Type Department Care Team (Late st Contact Info) Description 05/11/2020 Procedure Pass [address] [address] Social History Tobacco Use Types Packs/Day Years [...] on file documented as of this encounter Visit Diagnoses Not on filedocumented in this encounter Additional Health Concerns Infection Onset Date Last Indicated Resolved Time CoV-Risk 10/14/2024 10/14/2024 10/25/2024 1:57 AM EDT documented as of this encounter Care Teams Transport Tank Technician Relationship Specialty Start Date End Date George Hassan MD [address] [place] [address] PCP - General Internal Medicine 08/27/18 10/13/24 Onesimo Saenz MD [facility] [place] [address] PCP - General Internal Medicine 10/14/24 Pcp, Unknown 04/02/17 Lore Mendez NP [address] [place] [address] Historical LMR Provider 04/04/17 2 Viktoriya Quintero NP [address] [place] [address] Historical LMR Provider 04/04/17 2 Marcus Camarena MD [address] [place] [address] Historical LMR Provider 04/04/17 Angela Saenz MD [address] [place] [address] [address] [place] [address] [email or web address] Historical LMR Provider 04/04/17 Avery Cool PA-C [address] [place] [address] [facility] [place] [address] Historical LMR Provider 04/04/17 06/24/21 Ganga Lira MD [address] [place] [address] [email or web address] Historical LMR Provider 04/04/17 06/24/21 Sarah Randall MD [address] [facility] [place] [address] Historical LMR Provider 04/04/17 Kevin Brizuela MD [address] [place] [address] Historical LMR Provider 04/04/17 2 documented as of this encounter Additional Source Comments The information contained in this document represents components of the legal health record. It is not the complete legal health record.[facility]
== END 2025-06-15 11:43 | disposition home or self-care (01) ==
LOC: HO.HMCC 11:12
PROVIDERS: PCP Internal Medicine; Visit Provider Internal Medicine
DX: Z00.01 Encounter for general adult medical examination with abnormal findings (principal); F41.1 Generalized anxiety disorder; F41.0 Panic disorder [episodic paroxysmal anxiety]; F99 Mental disorder, not otherwise specified

== ENCOUNTER → 2025-06-15 11:11 | Outpatient (BNVA) | payer OTHER, SELFPAY | PROVIDERS: PCP Internal Medicine; Visit Provider Internal Medicine | DX: Z00.01 Encounter for general adult medical examination with abnormal findings (principal); F41.1 Generalized anxiety disorder; F41.0 Panic disorder [episodic paroxysmal anxiety]; F99 Mental disorder, not otherwise specified | CPT/HCPCS: 99395 ==